=== PATIENT | female | born 1935 | race Caucasian/White ===

== ENCOUNTER → 2020-03-23 | Outpatient (CLI) | payer MEDICARE ==
--- NOTE | 2020-03-23 16:03 | XR ---
Left shoulder HISTORY: Left shoulder pain 4 views of left shoulder There are overlying artifacts. Generators present in the left pectoral region. Acromioclavicular join t shows arthropathy. There is some spurring at the glenohumeral joint. Bone mineralization and alignm ent are maintained. No fracture or dislocation. IMPRESSION: Osteoarthritis.
== END | disposition home or self-care (01) ==
LOC: RADXRMAIN 15:28
PROVIDERS: ATTEND Internal Medicine
DX: M19.012 Primary osteoarthritis, left shoulder (principal)

== ENCOUNTER 2020-04-11 08:14 | Day surgery (SDC) | payer MEDICARE ==
[2020-04-07 10:34] VITALS: BMI 37.2
[~2020-04-11 08:14] MED LIST: SODIUM CHLORIDE 0.9% 1,000 ML IV SCH; ceFAZolin 1,000 MG in SODIUM CHLORIDE 0.9% IRRIGATIO 250 ML IRRIGATION ONE
[2020-04-11] MEDS ORDERED: LIDOCAINE 1% INJ 10MG/ML (20 ML MDV) ONE ×2 (08:16→09:42)
[2020-04-11] MEDS ORDERED: SODIUM CHLORIDE 0.9% 1,000 ML IV ONE (08:19)
[2020-04-11 08:42] VITALS: RESP 16; TEMP 98
[2020-04-11] MEDS ORDERED: MIDAZOLAM 2 MG/2 ML VIAL IV ONE (09:27)
[2020-04-11] MEDS ORDERED: fentaNYL (PF) 50 MCG/ML 2 ML AMP IV ONE (09:31)
[2020-04-11] MEDS ORDERED: LIDOCAINE 1% INJ 10MG/ML (20 ML MDV) SQ ONE ×2 (09:32→09:44)
[2020-04-11] MEDS ORDERED: fentaNYL (PF) 50 MCG/ML 2 ML AMP ONE (09:33)
[2020-04-11] MEDS ORDERED: SODIUM CHLORIDE 0.9% 1,000 ML IV SCH (10:15)
--- NOTE | 2020-04-11 10:15 | P.PCN ---
Date of Procedure: 04/11/20 Preoperative Diagnosis: Battery depletion Postoperative Diagnosis: The same Procedure(s) Performed: Battery replacement Description of Procedure: HISTORY: It is a 84-year-old female with history of dual-chamber pacemaker implantation and also of paroxysmal atrial fibrillation who was noted to have reached JANE, on recent evaluation. Patient is advised to have battery replacement CONSENT: I have discussed the risks and benefits as related to the above mentioned procedure and both sedation/analgesia as well as necessary blood product administration. The patient has indicated understanding and acceptance of the risks of the procedure discussed. PROCEDURE: Patient was brought to the lab in a fasting state. Patient was given IV Versed and fentanyl for sedation. The skin over the existing pulse generator was infiltrated with lidocaine. An incision was made in the skin and was deepened until the pectoral fascia was exposed. Hemostasis was obtained. The existing pulse generator was pulled out of the pocket. The leads were disconnected and were checked for thresholds. Conscious Sedation: Versed 0.5 mg Fentanyl 12.5 g Duration 24minutes THRESHOLDS: ATRIAL: . Patient is in atrial fibrillation. The impedance is 475. The fibrillation waves were 1.1 VENTRICULAR: The minimum pacing threshold was 1.25 at pulse width of 0.4. The impedance is 532. R-wave: 8.2 THE LEADS: ATRIAL: This is manufactured by [employer]. Model number is 4135 and the serial number is [id number] VENTRICULAR:. This is manufactured by [employer]. The model number is 4136 and the serial number is [id number]. THE EXPLANTED DEVICE: This is manufactured by [employer]. The model number is S606 and the serial number is [id number]. Date of implant was 01/10/2010 THE NEW DEVICE: This is manufactured by [employer]. Model number is [id number] and the serial number is [id number]. The leads were then connected to a new pulse generator. Pacemaker seems to function normally. The pocket was irrigated with antibiotics. The pocket was closed in the usual fashion. Pectoral fascia was closed with 2-0 Prolene, the subcutaneous tissue was closed with 3-0 Prolene and the skin was closed with 4-0 Prolene. Patient tolerated the procedure well . Patient will be monitored on the telemetry unit for 2-3 hours. If stable patient be discharged home later today. PLAN: Patient will be monitored for 2 hours. If stable patient be discharged home. She will resume all the home medications except for Xarelto. She will resume Xarelto day after tomorrow. She is also being prescribed prophylactic antibiotics FALLOW UP: Follow-up in the office in one week. Patient will keep the dressing dry until seen in the office. She will report if she has any undue swelling, fever or chills
[2020-04-11 13:03] VITALS: BP 136/75; PULSE 88
[2020-04-11] MEDS ORDERED: CEPHALEXIN 500 MG CAP PO SCH (16:00)
== END 2020-04-11 13:54 | disposition home or self-care (01) ==
LOC: CATHEP 08:14
PROVIDERS: ATTEND Internal Medicine Cardiovascular Disease
DX: Z45.010 Encounter for checking and testing of cardiac pacemaker pulse generator [battery] (principal); I48.0 Paroxysmal atrial fibrillation; I11.0 Hypertensive heart disease with heart failure; I50.32 Chronic diastolic (congestive) heart failure; E78.5 Hyperlipidemia, unspecified; D64.9 Anemia, unspecified; E78.00 Pure hypercholesterolemia, unspecified; Z79.01 Long term (current) use of anticoagulants; Z79.899 Other long term (current) drug therapy; Z82.49 Family history of ischemic heart disease and other diseases of the circulatory system
CPT/HCPCS: 33228; C1785; J2250; J0690 ×2; J2001; J3010

== ENCOUNTER → 2020-07-21 | Outpatient (CLI) | payer MEDICARE, OTHER ==
[2020-07-21 20:14] LABS: HCT 32.6 % (37.2-46.3); HGB 9.4 g/dL (12.0-15.0); MCH 24.1 pg (27.0-32.0); MCHC 28.8 g/dL (32.0-37.0); MCV 83.6 fL (80.0-97.0); Mean Platelet Volume 10.4 fL (9.5-12.2); Platelet Count 412 X 10*3/uL (140-440); RDW 16.9 % (11.5-14.5); WBC 13.18 X 10*3/uL (4.50-10.00)
[2020-07-22 06:19] LABS: % Iron Saturation 4.86 (12.00-45.00); Ferritin 18.8 ng/mL (10.0-291.0)
== END | disposition home or self-care (01) ==
LOC: LABWHC1 13:42
PROVIDERS: ATTEND Physician Assistant
DX: D64.9 Anemia, unspecified (principal)
CPT/HCPCS: 36415; 82728; 83540; 83550; 85027

== ENCOUNTER → 2020-08-07 | Day surgery (SDC) | payer MEDICARE, OTHER ==
[2020-08-02 15:02] VITALS: BMI 33.5
[~2020-08-07] MED LIST changes: +PROPOFOL 10 MG/ML 20 ML VIAL IV ONE; -SODIUM CHLORIDE 0.9% 1,000 ML IV SCH; -ceFAZolin 1,000 MG in SODIUM CHLORIDE 0.9% IRRIGATIO 250 ML IRRIGATION ONE
[2020-08-07 08:25] VITALS: RESP 16; TEMP 96.4
[2020-08-07] MEDS: LACTATED RINGERS 1,000 ML IV SCH ×2 (08:39→08:45)
[2020-08-07 10:00] VITALS: BP 107/56; PULSE 101
[2020-08-07 11:09] LABS: Anisocytosis Slight; Basophils % (A) 0 %; Eosinophils # (A) 0.1 k/uL (0-0.7); Eosinophils % (A) 1 %; HCT 37.9 % (34.0-46.0); HGB 10.8 gm/dL (11.4-16.0); Hypochromasia Marked; Lymphocytes # (A) 1.1 k/uL (1.0-4.8); Lymphocytes % (A) 5 %; MCH 22.6 pg (25.0-35.0); MCHC 28.6 g/dL (31.0-37.0); MCV 79.1 fL (80.0-100.0); Mean Platelet Volume 7.2; Microcytosis Slight; Monocytes # (A) 0.9 k/uL (0-1.0); Monocytes % (A) 4 %; Neutrophils # (A) 19.9 k/uL (1.3-7.7); Neutrophils % (A) 90 %; Platelet Count 504 k/uL (150-450); RDW 16.4 % (11.5-15.5); WBC 22.1 k/uL (3.8-10.6)
[2020-08-07 11:15] LABS: Albumin 3.4 g/dL (3.5-5.0); Calcium 9.5 mg/dL (8.4-10.2); Potassium 4.4 mmol/L (3.5-5.1); Total Bilirubin 0.5 mg/dL (0.2-1.3); Total Protein 6.2 g/dL (6.3-8.2)
--- NOTE | 2020-08-07 11:37 | P.PCN ---
Date of Procedure: 08/07/20 Description of Procedure: Brief history: Patient is a pleasant 85-year-old female presenting for EGD and colonoscopy for evaluation of anemia and change in bowel habits. She was seen in the clinic with reports of 2 months of diarrhea. Patient also had reports of rectal fullness and incontinence of stool. Procedure performed: Esophagogastroduodenoscopy with biopsy Colonoscopy with polypectomy, biopsy and tattoo Estimated blood loss: Minimal. Preoperative diagnosis: Anemia, change in bowel habits, last colonoscopy over 10 years ago Anesthesia: MAC Procedure: After informed consent was obtained from the patient was brought into the endoscopy unit and IV sedation was administered by anesthesia under continuous monitoring. Initially upper endoscopy was done. The Olympus GF 190 video endoscope was inserted into the mouth and esophagus intubated without any difficulty and was gradually advanced into the stomach and duodenum and carefully examined. The bulb and second part of the duodenum appeared normal with biopsies taken to rule out celiac sprue. The scope was then withdrawn into the stomach adequately insufflated with air and upon careful examination the antrum and body, cardia and fundus appeared normal except for patchy erythema in the antrum and body suggestive of mild gastritis with biopsies taken. The scope was then withdrawn into the esophagus. The GE junction was located at 38 cm to the incisors and biopsied. It appeared regular with no erythema erosions or ulcerations. Rest of the esophagus appeared normal. Patient tolerated the procedure well. At this time the patient continued to remain sedation. Initial digital rectal examination was normal. Olympus CF 190 video colonoscope was then inserted into the rectum and gradually advanced to the cecum without any difficulty. Careful examination was performed as the scope was gradually being withdrawn. The prep was fair. The cecum, ascending colon, transverse colon, descending colon, sigmoid colon and rectum were examined carefully. In the ascending colon a partially obstructing mass measuring approximately 4 cm and encompassing 90% of the lumen was seen and biopsied. Tattoo was placed distal and proximal to the mass with a total of 4 mL of ink injected. In the descending colon a smooth appearing lipoma was biopsied. A diminutive 2 mm sigmoid: Polyp was removed with cold forcep polypectomy. Multiple diverticula were noted throughout the colon both large and small. Retroflexion was performed in the rectum and no lesions were noted. Patient tolerated the procedure well. Impression: 1. Mild gastritis. Biopsies of the duodenum, antrum body and GE junction. 2. Partially obstructing right colonic mass biopsied, with tattoos placed proximal and distal to the mass. Suspected descending colon lipoma, biopsied. Moderate pandiverticulosis. Recommendations: Findings of this examination were discussed with the patient as well as her daughter. Okay to resume diet recommended low fiber low residual. Case will be discussed with the primary team and Dr. Tracey of the surgical service. Plan is for computed tomography scan of the chest, abdomen and pelvis and follow up within the surgical office next week. Await pathology from biopsies and follow up as stated.
== END ==
LOC: ORWHC2ENDO 07:53
PROVIDERS: ATTEND Internal Medicine
DX: C18.9 Malignant neoplasm of colon, unspecified (principal); K63.89 Other specified diseases of intestine; K57.30 Diverticulosis of large intestine without perforation or abscess without bleeding; K29.50 Unspecified chronic gastritis without bleeding; K20.90 Esophagitis, unspecified without bleeding; D64.9 Anemia, unspecified; I11.0 Hypertensive heart disease with heart failure; I50.9 Heart failure, unspecified; E78.5 Hyperlipidemia, unspecified; I48.91 Unspecified atrial fibrillation; F79 Unspecified intellectual disabilities; Z98.890 Other specified postprocedural states; Z87.891 Personal history of nicotine dependence; Z79.899 Other long term (current) drug therapy; Z79.01 Long term (current) use of anticoagulants; Z90.49 Acquired absence of other specified parts of digestive tract; Z96.653 Presence of artificial knee joint, bilateral
CPT/HCPCS: 88305; 80053; 85025; 45380; 43239; 45381; J2704

== ENCOUNTER 2020-08-13 21:19 | Emergency (ER) | payer MEDICARE, OTHER ==
[2020-08-13 21:26] VITALS: RESP 18; TEMP 98.3
--- NOTE | 2020-08-13 21:52 | ED ---
General Adult HPI - General Chief complaint: Altered Mental Status Stated complaint: Altered Mental Status Time Seen by Provider: 08/13/20 21:22 Source: patient, EMS Mode of arrival: EMS Limitations: altered mental status - History of Present Illness Initial comments: Dictation was produced using [employer] dictation software. please excuse any grammatical, word or spelling errors. 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 She allegedly according to daughter who is at bedside has 90% blockage of the intestinal lumen. She had this discovery on a colonoscopy done recently. She went to see the surgeon on an outpatient basis. She was a reticulocyte spritzing symptoms. They did a urine test and she was found have a urinary tract infection. She is given prescription for Levaquin. Patient is a poor historian. She has history of altered mental status. Daughter provides the complete history of present illness. Or set she is increasingly weak and unable to perform her activities of daily living. She needs more assistance than usual. The ROS documented in this emergency department record has been reviewed and confirmed by me. Those systems with pertinent positive or negative responses have been documented in the HPI. All other systems are other negative and/or noncontributory. PHYSICAL EXAM: General Impression: Alert, not in acute distress HEENT: Normocephalic atraumatic, extra-ocular movements intact, pupils equal and reactive to light bilaterally, mucous membranes moist. Cardiovascular: Heart regular rate and rhythm Chest: Able to complete full sentences, no retractions, no tachypnea Abdomen: abdomen soft, diffuse palpatory tenderness, non-distended, no organomegaly Musculoskeletal: Pulses present and equal in all extremities, no peripheral edema Motor: no focal deficits noted Neurological: CN II-XII grossly intact, no focal motor or sensory deficits noted Skin: Intact with no visualized rashes Psych: Normal affect and mood ED course: 85-year-old female with recently diagnosed colon cancer, recent urinary tract infection presents with generalized malaise, UTI. Daughter reports patient just started her antibiotics 2 or 3 days ago and has not been improving. Vital signs upon arrival are within acceptable limits. Laboratory evaluation obtained. Mild leukocytosis 12.7. This appears to be improved. When compared to last white blood cell count from 6 days ago. She has completed 3 days of Levaquin. Metabolic panel is unremarkable. Urinalysis is negative. Computed tomography scan of the brain shows no acute processes. CT of the abdomen and pelvis shows colonic mass in the right hemiabdomen. Disposition options were discussed with patient and patient's daughter. Patient wants to go home. They're advised to follow-up with primary care doctor. EKG interpretation: Ventricular rate 107, A. fib with rapid ventricular response, QRS 86, QTC 392. No TX prolongation, no QTC prolongation, no ST or T- wave changes noted. No old EKG for comparison. Overall, this EKG is unremarkable - Related Data Home Medications Medication Instructions Recorded Confirmed Allopurinol [Zyloprim] 100 mg PO DAILY 04/07/20 08/13/20 Atorvastatin [Lipitor] 40 mg PO HS 04/07/20 08/13/20 Diltiazem Cd [Cardizem CD] 120 mg PO DAILY 04/07/20 08/13/20 Ferrous Sulfate [Iron] 325 mg PO DAILY 04/07/20 08/13/20 Magnesium Oxide [Mag-Ox] 400 mg PO BID 04/07/20 08/13/20 Metoprolol Succinate [Toprol XL] 50 mg PO DAILY 04/07/20 08/13/20 Mirtazapine [Remeron] 30 mg PO HS 04/07/20 08/13/20 Potassium Chloride [Klor-Con 20 20 meq PO BID 04/07/20 08/13/20 Packets] Sertraline [Zoloft] 100 mg PO HS 04/07/20 08/13/20 Spironolactone [Aldactone] 25 mg PO DAILY 04/07/20 08/13/20 Torsemide [Demadex] 20 mg PO DAILY 04/07/20 08/13/20 Rivaroxaban [Xarelto] 20 mg PO DAILY 08/02/20 08/13/20 Rivastigmine [Rivastigmine 1 patch TRANSDERM DAILY 08/02/20 08/13/20 4.6MG/24Hr] Cholecalciferol [Vitamin D3 (25 25 mcg PO DAILY 08/13/20 08/13/20 Mcg = 1000 Iu)] Levofloxacin [Levaquin] 500 mg PO DAILY 08/13/20 08/13/20 Allergies Allergy/AdvReac Type Severity Reaction Status Date / Time No Known Allergies Allergy Verified 08/07/20 08:20 Review of Systems ROS Statement: Those systems with pertinent positive or pertinent negative responses have been documented in the HPI. ROS Other: All systems not noted in ROS Statement are negative. Past Medical History Past Medical History: Atrial Fibrillation Additional Past Medical History / Comment(s): See Dr Neff's H&P,SOB with exertion,blood sugars slightly elevated History of Any Multi-Drug Resistant Organisms: None Reported Past Surgical History: Cholecystectomy, Joint Replacement, Orthopedic Surgery, Pacemaker Additional Past Surgical History / Comment(s): Lorne knees replaced,left shoulder repaired Past Anesthesia/Blood Transfusion Reactions: No Reported Reaction Additional Past Anesthesia/Blood Transfusion Reaction / Comment(s): unknown hx blood transfusion Type of Cardiac Device: Permanent Pacemaker Device Placement Date:: 2009 Past Psychological History: Depression Smoking Status: Former smoker - Past Family History Mother Family Medical History: No Reported History General Exam Limitations: altered mental status Course Vital Signs 08/13/20 21:21 Temperature 98.3 F Pulse Rate 100 Respiratory 18 Rate Blood Pressure 130/86 O2 Sat by Pulse 99 Oximetry Medical Decision Making - Lab Data Result diagrams: 08/13/20 22:11 08/13/20 22:11 Lab Results 08/13/20 08/13/20 08/13/20 Range/Units 22:11 22:11 22:11 WBC 12.7 H (3.8-10.6) k/uL RBC 4.30 (3.80-5.40) m/uL Hgb 10.2 L (11.4-16.0) gm/dL Hct 33.4 L (34.0-46.0) % MCV 77.7 L (80.0-100.0) fL MCH 23.7 L (25.0-35.0) pg MCHC 30.6 L (31.0-37.0) g/dL RDW 16.4 H (11.5-15.5) % Plt Count 380 (150-450) k/uL MPV 7.3 Neutrophils % 84 % Lymphocytes % 9 % Monocytes % 5 % Eosinophils % 1 % Basophils % 0 % Neutrophils # 10.6 H (1.3-7.7) k/uL Lymphocytes # 1.1 (1.0-4.8) k/uL Monocytes # 0.7 (0-1.0) k/uL Eosinophils # 0.1 (0-0.7) k/uL Basophils # 0.0 (0-0.2) k/uL Hypochromasia Marked Anisocytosis Slight Microcytosis Slight Sodium 135 L (137-145) mmol/L Potassium 4.2 (3.5-5.1) mmol/L Chloride 105 (98-107) mmol/L Carbon Dioxide 20 L (22-30) mmol/L Anion Gap 10 mmol/L BUN 19 H (7-17) mg/dL Creatinine 1.31 H (0.52-1.04) mg/dL Est GFR (CKD-EPI)AfAm 43 (>60 ml/min/1.73 sqM) Est GFR (CKD-EPI)NonAf 37 (>60 ml/min/1.73 sqM) Glucose 94 (74-99) mg/dL Calcium 8.7 (8.4-10.2) mg/dL Total Bilirubin 0.6 (0.2-1.3) mg/dL AST 26 (14-36) U/L ALT 10 (4-34) U/L Alkaline Phosphatase 130 H (38-126) U/L Ammonia (<30) umol/L Total Protein 5.5 L (6.3-8.2) g/dL Albumin 2.9 L (3.5-5.0) g/dL Urine Color Yellow Urine Appearance Clear (Clear) Urine pH 7.0 (5.0-8.0) Ur Specific Norris 1.017 (1.001-1.035) Urine Protein Trace H (Negative) Urine Glucose (UA) Negative (Negative) Urine Ketones Negative (Negative) Urine Blood Negative (Negative) Urine Nitrite Negative (Negative) Urine Bilirubin Negative (Negative) Urine Urobilinogen <2.0 (<2.0) mg/dL Ur Leukocyte Esterase Negative (Negative) 08/13/20 Range/Units 22:11 WBC (3.8-10.6) k/uL RBC (3.80-5.40) m/uL Hgb (11.4-16.0) gm/dL Hct (34.0-46.0) % MCV (80.0-100.0) fL MCH (25.0-35.0) pg MCHC (31.0-37.0) g/dL RDW (11.5-15.5) % Plt Count (150-450) k/uL MPV Neutrophils % % Lymphocytes % % Monocytes % % Eosinophils % % Basophils % % Neutrophils # (1.3-7.7) k/uL Lymphocytes # (1.0-4.8) k/uL Monocytes # (0-1.0) k/uL Eosinophils # (0-0.7) k/uL Basophils # (0-0.2) k/uL Hypochromasia Anisocytosis Microcytosis Sodium (137-145) mmol/L Potassium (3.5-5.1) mmol/L Chloride (98-107) mmol/L Carbon Dioxide (22-30) mmol/L Anion Gap mmol/L BUN (7-17) mg/dL Creatinine (0.52-1.04) mg/dL Est GFR (CKD-EPI)AfAm (>60 ml/min/1.73 sqM) Est GFR (CKD-EPI)NonAf (>60 ml/min/1.73 sqM) Glucose (74-99) mg/dL Calcium (8.4-10.2) mg/dL Total Bilirubin (0.2-1.3) mg/dL AST (14-36) U/L ALT (4-34) U/L Alkaline Phosphatase (38-126) U/L Ammonia <9 (<30) umol/L Total Protein (6.3-8.2) g/dL Albumin (3.5-5.0) g/dL Urine Color Urine Appearance (Clear) Urine pH (5.0-8.0) Ur Specific Norris (1.001-1.035) Urine Protein (Negative) Urine Glucose (UA) (Negative) Urine Ketones (Negative) Urine Blood (Negative) Urine Nitrite (Negative) Urine Bilirubin (Negative) Urine Urobilinogen (<2.0) mg/dL Ur Leukocyte Esterase (Negative) Disposition Clinical Impression: Generalized weakness [facility] Condition: Fair Instructions (If sedation given, give patient instructions): Altered Mental Sta tus (ED), Weakness (ED) Is patient prescribed a controlled substance at d/c from ED?: No Referrals: Lincoln Don MD [Primary Care Provider] - 1-2 days Time of Disposition: 23:16
[2020-08-13 22:22] LABS: Anisocytosis Slight; Basophils % (A) 0 %; Eosinophils # (A) 0.1 k/uL (0-0.7); Eosinophils % (A) 1 %; HCT 33.4 % (34.0-46.0); HGB 10.2 gm/dL (11.4-16.0); Hypochromasia Marked; Lymphocytes # (A) 1.1 k/uL (1.0-4.8); Lymphocytes % (A) 9 %; MCH 23.7 pg (25.0-35.0); MCHC 30.6 g/dL (31.0-37.0); MCV 77.7 fL (80.0-100.0); Mean Platelet Volume 7.3; Microcytosis Slight; Monocytes # (A) 0.7 k/uL (0-1.0); Monocytes % (A) 5 %; Neutrophils # (A) 10.6 k/uL (1.3-7.7); Neutrophils % (A) 84 %; Platelet Count 380 k/uL (150-450); RDW 16.4 % (11.5-15.5); WBC 12.7 k/uL (3.8-10.6)
[2020-08-13 22:29] LABS: Appearance,Urine Clear (Clear); Bilirubin,Urine Negative (Negative); Blood,Urine Negative (Negative); Color,Urine Yellow; Glucose,Urine (UA) Negative (Negative); Ketones,Urine Negative (Negative); Leukocyte Esterase,Urine Negative (Negative); Nitrite,Urine Negative (Negative); Protein,Urine Trace (Negative); Specific Gravity,Urine 1.017 (1.001-1.035); Urobilinogen,Urine <2.0 mg/dL (<2.0)
[2020-08-13 22:34] LABS: Albumin 2.9 g/dL (3.5-5.0); Calcium 8.7 mg/dL (8.4-10.2); Potassium 4.2 mmol/L (3.5-5.1); Total Bilirubin 0.6 mg/dL (0.2-1.3); Total Protein 5.5 g/dL (6.3-8.2)
--- NOTE | 2020-08-13 23:07 | CT ---
EXAMINATION TYPE: CT brain wo con DATE OF EXAM: 08/13/2020 COMPARISON: None HISTORY: AMS, UTI, recent diagnosis colon ca CT DLP: 1129.4 mGycm Automated exposure control for dose reduction was used. Multiple axial sections were obtained of the brain without contrast. There is cerebral cortical atrophy. There is no mass effect nor midline shift. There is no sign of in tracranial hemorrhage. There is patchy hypodensity in the periventricular white matter. The calvarium is intact. IMPRESSION: Cerebral atrophy and chronic small vessel ischemia. No acute intracranial abnormality.
--- NOTE | 2020-08-13 23:25 | CT ---
EXAMINATION TYPE: CT abdomen pelvis wo con DATE OF EXAM: 08/13/2020 COMPARISON: None HISTORY: Abdominal pain. Recently diagnosed colon ca CT DLP: 1021.4 mGycm Automated exposure control for dose reduction was used. Images were obtained from the diaphragm to the floor the pelvis without contrast. There is subsegmental atelectasis at the lung bases. Heart is enlarged. There is no pericardial effus ion. There is no pleural effusion. Liver and spleen are intact. The bile ducts are not dilated. There are clips from cholecystectomy. Th ere is no evidence of pancreatic mass. Stomach is intact. There is no adrenal mass. Kidneys show normal size and contour. There is no hydronephrosis. There is no retroperitoneal adenopathy. Ureters are not dilated. The bladder distends smoothly. There is no in guinal hernia. There are multiple sigmoid diverticula. There is no diverticulitis. There is increased soft tissue de nsity at the cecum and ascending colon consistent with tumor mass that is known according to the [facility]. This area measures approximate 8 x 5 cm. There is no evidence of a bowel obstruction. The terminal ileum is not dilated. Appendix not seen with certainty. No sign of thickened appendix. The lumbar vertebra have normal alignment. There is compression deformity of L3 and L4 vertebra consi stent with compression fractures that are probably old. There is vertebroplasty of L3. IMPRESSION: There is soft tissue increased density at the medial aspect of the ascending colon consistent with tu mor mass. No bowel obstruction. No free air. No ascites. Mild subsegmental atelectasis at the lung bases. Cardiomegaly. Sigmoid diverticulosis. L3 and L4 comp ression fractures appear old.
[2020-08-13 23:58] VITALS: BP 133/89; PULSE 95
== END 2020-08-14 00:49 ==
LOC: EC 21:19
DX: R53.1 Weakness (principal); I48.91 Unspecified atrial fibrillation; F32.9 Major depressive disorder, single episode, unspecified; D72.829 Elevated white blood cell count, unspecified; K63.89 Other specified diseases of intestine; Z79.899 Other long term (current) drug therapy; Z85.038 Personal history of other malignant neoplasm of large intestine; Z87.891 Personal history of nicotine dependence; Z96.653 Presence of artificial knee joint, bilateral
CPT/HCPCS: 36415; 70450; 74176; 80053; 81003; 82140; 85025; 93005; 99285

== ENCOUNTER → 2020-08-24 | Outpatient (CLI) | payer MEDICARE, OTHER ==
[2020-08-24 15:03] LABS: Anisocytosis Slight; HCT 33.3 % (34.0-46.0); HGB 9.7 gm/dL (11.4-16.0); Hypochromasia Marked; MCH 22.6 pg (25.0-35.0); MCHC 29.2 g/dL (31.0-37.0); MCV 77.4 fL (80.0-100.0); Mean Platelet Volume 7.3; Microcytosis Slight; Platelet Count 420 k/uL (150-450); RDW 16.2 % (11.5-15.5); WBC 15.6 k/uL (3.8-10.6)
[2020-08-24 15:07] LABS: Potassium 4.7 mmol/L (3.5-5.1)
== END | disposition home or self-care (01) ==
LOC: LABPAT 13:51
PROVIDERS: ATTEND Surgery
DX: Z01.818 Encounter for other preprocedural examination (principal); C18.9 Malignant neoplasm of colon, unspecified
CPT/HCPCS: 36415; 80051; 85027; 86850; 86900; 86901; 93005

== ENCOUNTER → 2020-08-24 | Outpatient (CLI) | payer MEDICARE, OTHER ==
--- NOTE | 2020-08-25 11:00 | ECHOF ---
Referral Reason:[id number] Pre op clearance MEASUREMENTS -------- HEIGHT: 162.6 cm WEIGHT: 86.2 kg BP: RVIDd: 3.0 cm (< 3.3) IVSd: 1.0 cm (0.6 - 1.1) LVIDd: 4.8 cm (3.9 - 5.3) LVPWd: 1.1 cm (0.6 - 1.1) IVSs: 1.3 cm LVIDs: 4.1 cm LVPWs: 1.6 cm LA Diam: 3.5 cm (2.7 - 3.8) Ao Diam: 3.5 cm (2.0 - 3.7) AV Cusp: 1.6 cm (1.5 - 2.6) MV EXCURSION: 14.230 mm (> 18.000) MV EF SLOPE: 38 mm/s (70 - 150) EPSS: 1.1 cm AV maxP.35 mmHg AV meanP.15 mmHg AR PHT: 536 ms RAP: 5.00 mmHg RVSP: 37.13 mmHg FINDINGS -------- Paced rhythm. This was a technically adequate study. The left ventricular size is normal. There is borderline concentric left ventricular hypertrophy. Overall left ventricular systolic function is low-normal with, an EF between 50 - 55 %. The right ventricle is normal in size. The left atrium is normal in size. The right atrium is normal in size. Interatrial and interventricular septum intact. There is mild aortic valve sclerosis. There is mild aortic regurgitation. There is mild aortic st enosis present. Peak/mean gradient across the Aortic Valve is 30.35mmHg / 19.15mmHg. Mild mitral annular calcification present. Mild mitral regurgitation is present. Mild tricuspid regurgitation present. There is mild pulmonary hypertension. The right ventricular systolic pressure, as measured by Doppler, is 37.13mmHg. The pulmonic valve was not well visualized. The aortic root size is normal. Normal inferior vena cava with normal inspiratory collapse consistent with estimated right atrial pre ssure of 5 mmHg. There is no pericardial effusion. CONCLUSIONS -------- 1. The left ventricular size is normal. 2. There is borderline concentric left ventricular hypertrophy. 3. Overall left ventricular systolic function is low-normal with, an EF between 50 - 55 %. 4. There is mild aortic valve sclerosis. 5. There is mild aortic regurgitation. 6. There is mild aortic stenosis present. 7. Peak/mean gradient across the Aortic Valve is 30.35mmHg / 19.15mmHg. 8. Mild mitral annular calcification present. 9. Mild mitral regurgitation is present. 10. Mild tricuspid regurgitation present. 11. There is mild pulmonary hypertension. 12. The right ventricular systolic pressure, as measured by Doppler, is 37.13mmHg. 13. There is no pericardial effusion. PIT FURNACE OPERATOR: Ragini Wan RDCS
== END | disposition home or self-care (01) ==
LOC: RADECHMAIN 14:45
PROVIDERS: ATTEND Internal Medicine
DX: Z01.810 Encounter for preprocedural cardiovascular examination (principal); I08.3 Combined rheumatic disorders of mitral, aortic and tricuspid valves; I27.20 Pulmonary hypertension, unspecified
CPT/HCPCS: 93306

== ENCOUNTER 2020-09-04 10:04 | Inpatient (IN) | payer MEDICARE, OTHER ==
[~2020-09-04 10:04] MED LIST changes: +ACETAMINOPHEN TAB 500 MG TAB PO PRN; +ALVIMOPAN 12 MG CAPSULE PO PRN; +HEPARIN SODIUM,PORCINE/PF 5,000 UNIT/0.5 ML SYRINGE SQ PRN; +LIDOCAINE 1% (10MG/ML) FOR IV START INTRADERMA PRN; -PROPOFOL 10 MG/ML 20 ML VIAL IV ONE; +fentaNYL (PF) 50 MCG/ML 2 ML AMP IV PRN; +metroNIDAZOLE-NS PMX 500 MG in SALINE 1 100ML.BAG IVPB PRN
[2020-09-04] MEDS ORDERED: ONDANSETRON 4 MG/2 ML VIAL ONE (13:09)
[2020-09-04] MEDS: LACTATED RINGERS 1,000 ML IV SCH (13:48)
[2020-09-04] MEDS ORDERED: ONDANSETRON 4 MG/2 ML VIAL IVP ONE (13:53)
[2020-09-04] MEDS ORDERED: ROCURONIUM 10 MG/ML (5 ML VIAL) IV ONE (14:51)
[2020-09-04] MEDS ORDERED: SUCCINYLCHOLINE CHLORIDE 100 MG/5 ML SYR IV ONE (14:51)
[2020-09-04] MEDS ORDERED: PROPOFOL 10 MG/ML 20 ML VIAL IV ONE (14:51)
[2020-09-04] MEDS ORDERED: ESMOLOL 100 MG/10 ML VIAL ONE (14:51)
[2020-09-04] MEDS ORDERED: NEOSTIGMINE 1 MG/ML 10 ML VIAL ONE (14:51)
[2020-09-04] MEDS ORDERED: PHENYLEPHRINE-0.9% NACL SYG 1,000 MCG/10 ML SYRINGE ONE (14:51)
[2020-09-04] MEDS ORDERED: LIDOCAINE 1% INJ 10MG/ML (20 ML MDV) ONE (14:51)
[2020-09-04] MEDS ORDERED: GLYCOPYRROLATE 0.2 MG/ML 2 ML VIAL ONE (14:51)
[2020-09-04] MEDS ORDERED: fentaNYL (PF) 50 MCG/ML 2 ML AMP ONE (14:51)
[2020-09-04] MEDS ORDERED: LABETALOL 5 MG/ML VIAL MDV ONE (14:51)
[2020-09-04] MEDS ORDERED: LACTATED RINGERS 1,000 ML IV ONE ×3 (15:46→18:04)
[2020-09-04] MEDS ORDERED: HYDROmorphone 0.5 MG/0.5 ML SYRINGE IVP ONE ×2 (16:52→17:33)
[2020-09-04] MEDS ORDERED: ONDANSETRON 4 MG/2 ML VIAL IVP PRN (16:56)
[2020-09-04] MEDS ORDERED: BENZOCAINE/MENTHOL LOZENG 1 EACH LOZENGE MUCOUS MEM PRN (16:56)
--- NOTE | 2020-09-04 17:02 | P.OP ---
Date of Procedure: 09/04/20 Procedure(s) Performed: PREOPERATIVE DIAGNOSIS: Right-sided colon cancer POSTOPERATIVE DIAGNOSIS: Same PROCEDURE: Exploratory laparotomy with right colectomy SURGEON: Kyung EBL: 50 ML ANESTHESIA: General COMPLICATIONS: None OPERATIVE PROCEDURE: Placement placed in the operating table in the supine position. The patient was placed under general anesthesia. Abdomen was then prepped and draped sterilely. Midline incision made using the scalpel. Dissection through the subcutaneous tissues and fascia took place using electrocautery. Entrance into the peritoneal cavity occurred. Bookwalter retractor was utilized. The patient had some adhesions in the right upper quadrant from the previous open cholecystectomy. There was evidence of a large mass involving the cecum/ascending colon that had tattooing evident. The bowel was not distended proximally. The liver was palpated and appeared normal. The cecum and terminal ileum were mobilized by incising the peritoneum. The white line of Toldt was incised as well. The mesentery of the cecum and ascending colon was brought medially. As we approached the area of the palpable mass there was some mild induration present. Careful dissection was able to mobilize this mass medially off of the duodenum. There did not appear to be any gross neoplastic extension into the surrounding tissues. The duodenum was carefully preserved and no cautery was used adjacent to the duodenum. The transverse colon was then divided using a linear 75 stapler. Mesentery of the transverse colon and ascending colon cecum and terminal ileum was then divided using a combination of 0 silk ties and the LigaSure device. Specimen was passed off at that point. The area was irrigated. No bleeding was seen. The antimesenteric portion of the staple line of both the ileum and transverse colon was excised using electrocautery. The linear 75 stapler was fired along the antimesenteric border creating a [id number] anastomosis antiperistaltic. The defect was then closed using a TX 60 device. The TX 60 stapler line was imbricated using interrupted 3-0 GI silk sutures. A 3-0 GI silk crotch stitch was also placed. The mesenteric defect was closed using a running 3-0 Vicryl suture. Again irrigation took place with no evidence of bleeding. No additional abnormalities in the bowel both small bowel and colon were identified. The midline fascia was then reapproximated using 2 separate double-stranded looped PDS sutures. The subcutaneous tissues were closed using 3-0 Vicryl sutures. The skin was closed using barbara. Sterile dressings were applied. At the end of this procedure the sponge needle and ensure counts were correct. DISPOSITION: Stable to recovery room
[2020-09-04] MEDS: D5-0.45% NACL WITH KCL 20MEQ/L 1,000 ML IV SCH (18:51)
[2020-09-04] MEDS: ACETAMINOPHEN IV (For NPO) 1,000 MG in EMPTY BAG 1 BAG IVPB SCH ×2 (18:51→23:29)
[2020-09-04] MEDS ORDERED: ACETAMINOPHEN TAB 500 MG TAB PO PRN (19:33)
[2020-09-04] MEDS ORDERED: FAMOTIDINE 20 MG/2 ML VIAL IV SCH (21:00)
[2020-09-04] MEDS: ALVIMOPAN 12 MG CAPSULE PO SCH (22:02)
[2020-09-04] MEDS: MIRTAZAPINE 15 MG TAB PO SCH (22:04)
[2020-09-04] MEDS: SERTRALINE 100 MG TAB PO SCH (22:06)
[2020-09-04] MEDS: MAGNESIUM OXIDE 400 MG TAB PO SCH (22:07)
[2020-09-04] MEDS: POTASSIUM CHLORIDE ER 20 MEQ TAB.ER PO SCH (22:12)
[2020-09-05] MEDS ORDERED: HEPARIN SODIUM,PORCINE/PF 5,000 UNIT/0.5 ML SYRINGE SQ SCH
[2020-09-05] MEDS: ACETAMINOPHEN IV (For NPO) 1,000 MG in EMPTY BAG 1 BAG IVPB SCH ×2 (05:49→12:40)
[2020-09-05] MEDS: D5-0.45% NACL WITH KCL 20MEQ/L 1,000 ML IV SCH ×3 (05:49→18:03)
[2020-09-05 07:23] LABS: Anisocytosis Slight; Basophils % (A) 0 %; Eosinophils % (A) 0 %; HCT 34.3 % (34.0-46.0); HGB 9.6 gm/dL (11.4-16.0); Hypochromasia Marked; Lymphocytes % (A) 6 %; MCH 21.5 pg (25.0-35.0); Mean Platelet Volume 8.5; Microcytosis Slight; Monocytes # (A) 0.7 k/uL (0-1.0); Monocytes % (A) 5 %; Neutrophils # (A) 14.3 k/uL (1.3-7.7); Neutrophils % (A) 89 %; Platelet Count 456 k/uL (150-450); RBC 4.45 m/uL (3.80-5.40); WBC 16.1 k/uL (3.8-10.6)
[2020-09-05] MEDS: HYDROmorphone 1 MG/ML 1 ML SYRINGE IVP PRN ×2 (08:21→17:19)
[2020-09-05] MEDS: FERROUS SULFATE 325 MG TAB PO SCH (08:24)
[2020-09-05] MEDS: MAGNESIUM OXIDE 400 MG TAB PO SCH ×2 (08:24→20:47)
[2020-09-05] MEDS: allopurinoL 100 MG TAB PO SCH (08:24)
[2020-09-05] MEDS: CHOLECALCIFEROL 25 MCG (1000 IU) TABLET PO SCH (08:24)
[2020-09-05] MEDS: PANTOPRAZOLE 40 MG TABLET PO SCH (08:25)
[2020-09-05] MEDS: SPIRONOLACTONE 25 MG TAB PO SCH (08:25)
[2020-09-05] MEDS: ALVIMOPAN 12 MG CAPSULE PO SCH ×2 (08:25→20:43)
[2020-09-05] MEDS: METOPROLOL SUCCINATE (ER) 50 MG TAB.ER.24H PO SCH (08:25)
[2020-09-05] MEDS: POTASSIUM CHLORIDE ER 20 MEQ TAB.ER PO SCH ×2 (08:25→20:48)
[2020-09-05] MEDS: DILTIAZEM CD 120 MG CAP.ER.24H PO SCH (08:26)
[2020-09-05] MEDS: RIVAROXABAN 20 MG TAB PO SCH (08:26)
[2020-09-05] MEDS: TORSEMIDE 20 MG TAB PO SCH (08:27)
[2020-09-05] MEDS: RIVASTIGMINE 4.6MG/24HR PATCH TRANSDERM SCH (08:27)
[2020-09-05] MEDS ORDERED: RIVAROXABAN 20 MG TAB PO SCH (09:00)
[2020-09-05 10:22] LABS: African American GFR (CKD) 36.4 (60.0-200.0); Anion Gap 15.5 mmol/L (4.00-12.00); Calcium 8.8 mg/dL (8.7-10.3); Carbon Dioxide 21.5 mmol/L (21.6-31.8); Non-African American GFR(CKD) 31.4 (60.0-200.0); Potassium 3.4 mmol/L (3.5-5.5)
[2020-09-05] MEDS ORDERED: POTASSIUM CHLORIDE ER 20 MEQ TAB.ER PO STA (11:04)
--- NOTE | 2020-09-05 11:11 | P.PN ---
<Ester Johnson - Last Filed: 09/05/20 11:00> Subjective Progress Note Date: 09/05/20 CHIEF COMPLAINT: Right-sided colon cancer HISTORY OF PRESENT ILLNESS: Patient is status post exploratory laparotomy with right colectomy. She is lying in bed comfortably. She has been having abdominal pain she is getting IV Dilaudid and IV Tylenol. The Dilaudid does make her sleepy. Patient currently on a clear liquid diet. Denies any nausea or vomiting. No flatus or BM. Afebrile. Patient did have tachycardia with a heart rate up to 120 during the night. Heart rate is now 96. BP stable at 125/77 WBC is 16.1 hemoglobin 9.6 potassium 3.4 creatinine 1.5 PHYSICAL EXAM: VITAL SIGNS: Reviewed. GENERAL: Well-developed in no acute distress. HEENT: No sclera icterus. Extraocular movements grossly intact. Moist buccal m ucosa. Head is atraumatic, normocephalic. ABDOMEN: Soft. Nondistended. Incisional dressing 2 small areas of blood saturation noted. One areas at the top of the dressing and the second is at the bottom of dressing NEUROLOGIC: Pleasantly confused ASSESSMENT: 1. Right-sided colon cancer status post exploratory laparotomy with right colectomy. Postop day #1 2. Hypokalemia 3. History of atrial fibrillation anticoagulated with Xarelto PLAN: -Potassium being replaced -Continue clear liquid diet -Continue pain medications -Continue IV fluids -Encourage incentive spirometer use -Continue PT OT -GI prophylaxis Protonix and DVT prophylaxis Xarelto Physician Nurse Administrator note has been reviewed by physician. Signing provider agrees with the documented findings, assessment, and plan of care. Objective - Vital Signs Vital signs: Vital Signs Temp 97.3 F L 09/05/20 08:12 Pulse 96 09/05/20 08:12 Resp 18 09/05/20 08:12 BP 125/77 09/05/20 08:12 Pulse Ox 95 09/05/20 07:29 Intake & Output 09/04/20 09/05/20 09/05/20 18:59 06:59 18:59 Intake Total 3150 100 Output Total 100 450 Balance 3050 -350 Weight 85.8 kg Intake: IV 3150 Oral 100 Output: Urine 50 450 Estimated Blood Loss 50 Other: Voiding Method Indwelling Catheter Indwelling Catheter - Labs CBC & Chem 7: 09/05/20 05:17 09/05/20 05:17 Labs: Abnormal Lab Results - Last 24 Hours (Table) 09/05/20 09/05/20 Range/Units 05:17 05:17 WBC 16.1 H (3.8-10.6) k/uL Hgb 9.6 L (11.4-16.0) gm/dL MCV 77.0 L (80.0-100.0) fL MCH 21.5 L (25.0-35.0) pg MCHC 28.0 L (31.0-37.0) g/dL RDW 16.0 H (11.5-15.5) % Plt Count 456 H (150-450) k/uL Neutrophils # 14.3 H (1.3-7.7) k/uL Potassium 3.4 L (3.5-5.5) mmol/L Carbon Dioxide 21.5 L (21.6-31.8) mmol/L Anion Gap 15.50 H (4.00-12.00) mmol/L Est GFR (CKD-EPI)AfAm 36.4 L (60.0-200.0) Est GFR (CKD-EPI)NonAf 31.4 L (60.0-200.0) Glucose 156 H (70-110) mg/dL <Raji Tracey - Last Filed: 09/05/20 16:59> Subjective As above. Patient more comfortable today. She is asking for more to eat. Tolerating clears. Labs noted. Will begin full liquids tomorrow. Increase activity. Objective - Vital Signs Vital signs: Vital Signs Temp 97.6 F 09/05/20 15:12 Pulse 86 09/05/20 15:12 Resp 16 09/05/20 15:12 BP 104/67 09/05/20 15:12 Pulse Ox 98 09/05/20 15:12 Intake & Output 09/04/20 09/05/20 09/05/20 18:59 06:59 18:59 Intake Total 3150 100 Output Total 100 450 Balance 3050 -350 Weight 85.8 kg Intake: IV 3150 Oral 100 Output: Urine 50 450 Estimated Blood Loss 50 Other: Voiding Method Indwelling Catheter Indwelling Catheter - Labs CBC & Chem 7: 09/05/20 05:17 09/05/20 05:17 Labs: Abnormal Lab Results - Last 24 Hours (Table) 09/05/20 09/05/20 Range/Units 05:17 05:17 WBC 16.1 H (3.8-10.6) k/uL Hgb 9.6 L (11.4-16.0) gm/dL MCV 77.0 L (80.0-100.0) fL MCH 21.5 L (25.0-35.0) pg MCHC 28.0 L (31.0-37.0) g/dL RDW 16.0 H (11.5-15.5) % Plt Count 456 H (150-450) k/uL Neutrophils # 14.3 H (1.3-7.7) k/uL Potassium 3.4 L (3.5-5.5) mmol/L Carbon Dioxide 21.5 L (21.6-31.8) mmol/L Anion Gap 15.50 H (4.00-12.00) mmol/L Est GFR (CKD-EPI)AfAm 36.4 L (60.0-200.0) Est GFR (CKD-EPI)NonAf 31.4 L (60.0-200.0) Glucose 156 H (70-110) mg/dL
[2020-09-05] MEDS: LACTATED RINGERS 1,000 ML IV SCH (11:31)
[2020-09-05] MEDS ORDERED: Potassium Replacement Protocol 1 EACH MISC MISCELLANE PRN (18:58)
--- NOTE | 2020-09-05 19:04 | P.CONS ---
History of Present Illness - Reason for Consult Consult date: 09/04/20 - History of Present Illness Sary Veronica, is an 85-year-old female who was admitted to [facility] by Dr. Tracey, and underwent Exploratory laparotomy with right colectomy on 09/04/2020, patient was subsequently admitted to medical floor, medical consultation was requested for management while hospitalized. Past medical history is significant for history of hypertension, history of hyperlipidemia, history of anemia, history of osteoarthritis, history of paroxysmal atrial fibrillation, history of diverticulosis, and history of major depression. On review of systems patient is alert and oriented 3 in no distress she was seen postoperatively on the medical floor she is complaining of mild pain in the abdomen otherwise she denies any complaints, there is no fever or chills no headache or dizziness no chest pain no shortness of breath no cough no nausea or vomiting no abdominal pain no diarrhea no blood in the stools no burning with urination no frequency or urgency and no hematuria Past Medical History Past Medical History: Atrial Fibrillation, Cancer, Heart Failure, Dementia, Hypertension, Osteoarthritis (OA), Pneumonia, Renal Disease Additional Past Medical History / Comment(s): SOB with exertion,gout, anemic, low magnesium,compression fx lumbar, colon cancer, chronic kidney disease, recent uti with tx of levaquin History of Any Multi-Drug Resistant Organisms: None Reported Past Surgical History: Cholecystectomy, Hernia Repair, Joint Replacement, Orthopedic Surgery, Pacemaker Additional Past Surgical History / Comment(s): Lorne knees replaced,left shoulder repaired, umbilical hernia repair Past Anesthesia/Blood Transfusion Reactions: No Reported Reaction Additional Past Anesthesia/Blood Transfusion Reaction / Comm: unknown hx blood transfusion Type of Cardiac Device: Permanent Pacemaker Device Placement Date:: 2009 Smoking Status: Former smoker - Past Family History Mother Family Medical History: No Reported History Medications and Allergies Home Medications Medication Instructions Recorded Confirmed Type Allopurinol [Zyloprim] 100 mg PO DAILY 04/07/20 09/04/20 History Diltiazem Cd [Cardizem CD] 120 mg PO DAILY 04/07/20 09/04/20 History Ferrous Sulfate [Iron] 325 mg PO DAILY 04/07/20 09/04/20 History Magnesium Oxide [Mag-Ox] 400 mg PO BID 04/07/20 09/04/20 History Metoprolol Succinate [Toprol XL] 50 mg PO DAILY 04/07/20 09/04/20 History Mirtazapine [Remeron] 30 mg PO HS 04/07/20 09/04/20 History Potassium Chloride [Klor-Con 20 20 meq PO BID 04/07/20 09/04/20 History Packets] Sertraline [Zoloft] 100 mg PO HS 04/07/20 09/04/20 History Spironolactone [Aldactone] 25 mg PO DAILY 04/07/20 09/04/20 History Torsemide [Demadex] 20 mg PO DAILY 04/07/20 09/04/20 History Rivaroxaban [Xarelto] 20 mg PO DAILY 08/02/20 09/04/20 History Rivastigmine [Rivastigmine 1 patch TRANSDERM DAILY 08/02/20 09/04/20 History 4.6MG/24Hr] Cholecalciferol [Vitamin D3 (25 25 mcg PO DAILY 08/13/20 09/04/20 History Mcg = 1000 Iu)] Acetaminophen [Tylenol] 500 mg PO DAILY PRN 08/22/20 09/04/20 History Pantoprazole Sodium [Protonix] 40 mg PO DAILY 08/22/20 09/04/20 History Allergies Allergy/AdvReac Type Severity Reaction Status Date / Time No Known Allergies Allergy Verified 09/04/20 13:10 Physical Exam Vitals: Vital Signs Temp Pulse Resp BP Pulse Ox 09/04/20 18:00 104 H 14 140/90 93 L 09/04/20 17:58 98 14 144/96 95 09/04/20 17:45 112 H 14 144/96 98 09/04/20 17:30 109 H 14 147/95 97 09/04/20 17:18 105 H 14 151/93 97 09/04/20 17:12 105 H 14 145/86 100 09/04/20 16:59 99 14 122/86 100 09/04/20 16:56 97.5 F L 113 H 15 120/81 99 09/04/20 16:45 98.3 F 125 H 20 109/86 100 09/04/20 13:12 97.3 F L 99 113/64 95 Intake and Output 09/04/20 09/04/20 09/04/20 06:59 14:59 22:59 Intake Total 1050 2100 Output Total 100 Balance 1050 2000 Intake: IV 1050 2100 Output: Urine 50 Estimated Blood Loss 50 Other: Weight 85.8 kg In general patient is alert and oriented 3 in no apparent distress HEENT head normocephalic and atraumatic, there is constant tremor of the lower mandible Neck is supple no JVD no goiter no lymphadenopathy Chest exam reveals a few scattered crackles no wheezing Cardiac exam reveals irregular heart sounds no gallops no murmurs Abdomen is soft with mild tenderness in the right lower quadrant no organomegaly no palpable masses Extremity exam reveals 2 edema no cyanosis or clubbing Neurological examination reveals no gross focal deficit Results CBC & Chem 7: 09/05/20 05:17 09/05/20 05:17 Assessment and Plan Plan: Right colon lesion status post right colectomy Underlying history of hypertension Underlying history of hyperlipidemia Underlying history of gout Underlying history of depression Home medications reviewed and reordered Recheck labs in a.m. Will follow closely during this admission
--- NOTE | 2020-09-05 19:22 | P.PN ---
Subjective Progress Note Date: 09/05/20 Sary Veronica, is an 85-year-old female who was admitted to [facility] by Dr. Tracey, and underwent Exploratory laparotomy with right colectomy on 09/04/2020, patient was subsequently admitted to medical floor, medical consultation was requested for management while hospitalized. Past medical history is significant for history of hypertension, history of hyperlipidemia, history of anemia, history of osteoarthritis, history of paroxysmal atrial fibrillation, history of diverticulosis, and history of major depression. On review of systems patient is alert and oriented 3 in no distress she was seen postoperatively on the medical floor she is complaining of mild pain in the abdomen otherwise she denies any complaints, there is no fever or chills no headache or dizziness no chest pain no shortness of breath no cough no nausea or vomiting no abdominal pain no diarrhea no blood in the stools no burning with urination no frequency or urgency and no hematuria On 09/05/2020 patient was seen and examined on the medical floor she is alert and oriented in no apparent distress she is complaining of some abdominal discomfort otherwise she denies any complaints throughout last night patient had some episodes of tachycardia , lab reviews is showing evidence of leukocytosis otherwise no abnormality at this time there is no fever or chills no headache or dizziness no chest pain no shortness of breath no cough no nausea or vomiting no abdominal pain no diarrhea no blood in the stools no burning with urination no frequency or urgency and no hematuria Objective - Vital Signs Vital signs: Vital Signs Temp 97.6 F 09/05/20 15:12 Pulse 86 09/05/20 18:46 Resp 16 09/05/20 18:46 BP 104/67 09/05/20 15:12 Pulse Ox 98 09/05/20 15:12 Intake & Output 09/05/20 09/05/20 09/06/20 06:59 18:59 06:59 Intake Total 100 1900 Output Total 450 Balance -350 1900 Intake: Intake, IV Titration 1500 Amount D5-0.45% NaCl with KCl 1500 20Meq/l 1,000 ml @ 125 mls/hr IV .Q8H [facility] Rx#: [id number] Oral 100 400 Output: Urine 450 Other: Voiding Method Indwelling Catheter Indwelling Catheter - Exam In general patient is alert and oriented 3 in no apparent distress HEENT head normocephalic and atraumatic, there is constant tremor of the lower mandible Neck is supple no JVD no goiter no lymphadenopathy Chest exam reveals a few scattered crackles no wheezing Cardiac exam reveals irregular heart sounds no gallops no murmurs Abdomen is soft with mild tenderness in the right lower quadrant no organomegaly no palpable masses Extremity exam reveals 2 edema no cyanosis or clubbing Neurological examination reveals no gross focal deficit - Labs CBC & Chem 7: 09/05/20 05:17 09/05/20 05:17 Labs: Abnormal Lab Results - Last 24 Hours (Table) 09/05/20 09/05/20 Range/Units 05:17 05:17 WBC 16.1 H (3.8-10.6) k/uL Hgb 9.6 L (11.4-16.0) gm/dL MCV 77.0 L (80.0-100.0) fL MCH 21.5 L (25.0-35.0) pg MCHC 28.0 L (31.0-37.0) g/dL RDW 16.0 H (11.5-15.5) % Plt Count 456 H (150-450) k/uL Neutrophils # 14.3 H (1.3-7.7) k/uL Potassium 3.4 L (3.5-5.5) mmol/L Carbon Dioxide 21.5 L (21.6-31.8) mmol/L Anion Gap 15.50 H (4.00-12.00) mmol/L Est GFR (CKD-EPI)AfAm 36.4 L (60.0-200.0) Est GFR (CKD-EPI)NonAf 31.4 L (60.0-200.0) Glucose 156 H (70-110) mg/dL Assessment and Plan Plan: Right colon lesion status post right colectomy Underlying history of hypertension Underlying history of hyperlipidemia Underlying history of gout Underlying history of depression Home medications reviewed and reordered Recheck labs in a.m. Will follow closely during this admission
[2020-09-05] MEDS: FAMOTIDINE 20 MG TAB PO SCH (20:44)
[2020-09-05] MEDS: MIRTAZAPINE 15 MG TAB PO SCH (20:46)
[2020-09-05] MEDS: SERTRALINE 100 MG TAB PO SCH (20:47)
[2020-09-06] MEDS: HYDROmorphone 1 MG/ML 1 ML SYRINGE IVP PRN ×2 (03:01→09:03)
[2020-09-06] MEDS: D5-0.45% NACL WITH KCL 20MEQ/L 1,000 ML IV SCH ×3 (03:09→17:19)
[2020-09-06] MEDS: LACTATED RINGERS 1,000 ML IV SCH (05:24)
[2020-09-06 06:58] LABS: Anisocytosis Slight; Basophils # (A) 0.1 k/uL (0-0.2); Basophils % (A) 0 %; Eosinophils # (A) 0.1 k/uL (0-0.7); Eosinophils % (A) 1 %; HCT 30.8 % (34.0-46.0); HGB 8.6 gm/dL (11.4-16.0); Hypochromasia Marked; Lymphocytes # (A) 0.8 k/uL (1.0-4.8); Lymphocytes % (A) 4 %; MCV 78.5 fL (80.0-100.0); Mean Platelet Volume 7.7; Microcytosis Slight; Monocytes # (A) 0.7 k/uL (0-1.0); Monocytes % (A) 4 %; Neutrophils # (A) 16.5 k/uL (1.3-7.7); Neutrophils % (A) 90 %; Platelet Count 339 k/uL (150-450); RBC 3.92 m/uL (3.80-5.40); WBC 18.3 k/uL (3.8-10.6)
[2020-09-06 10:13] LABS: African American GFR (CKD) 36.4 (60.0-200.0); Albumin 2.8 g/dL (3.80-4.90); Albumin/Globulin Ratio 1.87 (1.60-3.17); Anion Gap 11.3 mmol/L (4.00-12.00); BUN/Creat Ratio 13.33 Ratio (12.00-20.00); Calcium 8.6 mg/dL (8.7-10.3); Carbon Dioxide 18.7 mmol/L (21.6-31.8); Globulin 1.5 g/dL (1.6-3.3); Non-African American GFR(CKD) 31.4 (60.0-200.0); Potassium 4.1 mmol/L (3.5-5.5); Total Bilirubin 0.2 mg/dL (0.3-1.2); Total Protein 4.3 g/dL (6.2-8.2)
[2020-09-06] MEDS: TORSEMIDE 20 MG TAB PO SCH (10:43)
[2020-09-06] MEDS: RIVAROXABAN 20 MG TAB PO SCH (10:44)
[2020-09-06] MEDS: SPIRONOLACTONE 25 MG TAB PO SCH (10:44)
[2020-09-06] MEDS: ALVIMOPAN 12 MG CAPSULE PO SCH (10:44)
[2020-09-06] MEDS: PANTOPRAZOLE 40 MG TABLET PO SCH (10:44)
[2020-09-06] MEDS: FERROUS SULFATE 325 MG TAB PO SCH (10:44)
[2020-09-06] MEDS: DILTIAZEM CD 120 MG CAP.ER.24H PO SCH (10:44)
[2020-09-06] MEDS: METOPROLOL SUCCINATE (ER) 50 MG TAB.ER.24H PO SCH (10:44)
[2020-09-06] MEDS: allopurinoL 100 MG TAB PO SCH (10:45)
[2020-09-06] MEDS: POTASSIUM CHLORIDE ER 20 MEQ TAB.ER PO SCH ×2 (10:45→20:50)
[2020-09-06] MEDS: MAGNESIUM OXIDE 400 MG TAB PO SCH ×2 (10:45→20:50)
[2020-09-06] MEDS: CHOLECALCIFEROL 25 MCG (1000 IU) TABLET PO SCH (10:45)
--- NOTE | 2020-09-06 12:09 | P.PN ---
<Ester Johnson - Last Filed: 09/06/20 12:01> Subjective Progress Note Date: 09/06/20 CHIEF COMPLAINT: Right-sided colon cancer HISTORY OF PRESENT ILLNESS: Patient is status post exploratory laparotomy with right colectomy. Patient is sitting up at bedside chair. She has been reporting abdominal pain. She has been receiving Dilaudid and oral Tylenol. The 1mg IV Dilaudid does make her sleepy. Patient has been having episodes of paranoia and agitation. She pulled out her Andrade catheter last night. Denies any nausea or vomiting. She is currently a full liquid diet. Afebrile. Heart rate 125. Patient has had episodes of tachycardia WBC has increased from 16.1 and 18.3 hemoglobin down from 9.6 to 8.6 sodium 134 potassium 4.1 creatinine 1.5 PHYSICAL EXAM: VITAL SIGNS: Reviewed. GENERAL: Well-developed in no acute distress. HEENT: No sclera icterus. Extraocular movements grossly intact. Moist buccal mucosa. Head is atraumatic, normocephalic. ABDOMEN: Soft. Nondistended. Incisional dressing 2 small areas of blood saturation noted. One areas at the top of the dressing and the second is at the bottom of dressing NEUROLOGIC: confused ASSESSMENT: 1. Right-sided colon cancer status post exploratory laparotomy with right colectomy. Postop day #2 2. Hypokalemia improved 3. History of atrial fibrillation anticoagulated with Xarelto PLAN: -Consult psychiatry regarding patient's paranoia -Continue clear liquid diet -Continue pain medications -Continue IV fluids -Encourage incentive spirometer use -Continue PT OT -GI prophylaxis Protonix and DVT prophylaxis Xarelto Physician Corporate Aircraft Mechanic note has been reviewed by physician. Signing provider agrees with the documented findings, assessment, and plan of care. Objective - Vital Signs Vital signs: Vital Signs Temp 97.3 F L 09/05/20 19:48 Pulse 125 H 09/06/20 09:02 Resp 18 09/05/20 19:48 BP 128/83 09/06/20 09:02 Pulse Ox 98 09/06/20 04:54 Intake & Output 09/05/20 09/06/20 09/06/20 18:59 06:59 18:59 Intake Total 1900 Balance 1900 Intake: Intake, IV Titration 1500 Amount D5-0.45% NaCl with KCl 1500 20Meq/l 1,000 ml @ 125 mls/hr IV .Q8H [facility] Rx#: [id number] Oral 400 Other: Voiding Method Indwelling Catheter Indwelling Catheter # Bowel Movements 0 - Labs CBC & Chem 7: 09/06/20 05:31 09/06/20 05:31 Labs: Abnormal Lab Results - Last 24 Hours (Table) 09/06/20 09/06/20 Range/Units 05:31 05:31 WBC 18.3 H (3.8-10.6) k/uL Hgb 8.6 L (11.4-16.0) gm/dL Hct 30.8 L (34.0-46.0) % MCV 78.5 L (80.0-100.0) fL MCH 22.0 L (25.0-35.0) pg MCHC 28.0 L (31.0-37.0) g/dL RDW 16.0 H (11.5-15.5) % Neutrophils # 16.5 H (1.3-7.7) k/uL Lymphocytes # 0.8 L (1.0-4.8) k/uL Sodium 134 L (135-145) mmol/L Carbon Dioxide 18.7 L (21.6-31.8) mmol/L Est GFR (CKD-EPI)AfAm 36.4 L (60.0-200.0) Est GFR (CKD-EPI)NonAf 31.4 L (60.0-200.0) Glucose 128 H (70-110) mg/dL Calcium 8.6 L (8.7-10.3) mg/dL Total Bilirubin 0.2 L (0.3-1.2) mg/dL Total Protein 4.3 L (6.2-8.2) g/dL Albumin 2.80 L (3.80-4.90) g/dL Globulin 1.5 L (1.6-3.3) g/dL <Raji Tracey - Last Filed: 09/06/20 16:56> Subjective As above. Patient with increased confusion and paranoia today. Denies pain. Not eating much but tolerating what she has been eating. No bowel function. Continue full liquids. Monitor labs. Psychiatry consult has been placed. Objective - Vital Signs Vital signs: Vital Signs Temp 97.6 F 09/06/20 12:53 Pulse 99 09/06/20 12:53 Resp 16 09/06/20 12:53 BP 108/73 09/06/20 12:53 Pulse Ox 100 09/06/20 12:53 Intake & Output 09/05/20 09/06/20 09/06/20 18:59 06:59 18:59 Intake Total 1900 Balance 1900 Intake: Intake, IV Titration 1500 Amount D5-0.45% NaCl with KCl 1500 20Meq/l 1,000 ml @ 125 mls/hr IV .Q8H [facility] Rx#: [id number] Oral 400 Other: Voiding Method Indwelling Catheter Indwelling Catheter Toilet # Bowel Movements 0 - Labs CBC & Chem 7: 09/06/20 05:31 09/06/20 05:31 Labs: Abnormal Lab Results - Last 24 Hours (Table) 09/06/20 09/06/20 Range/Units 05:31 05:31 WBC 18.3 H (3.8-10.6) k/uL Hgb 8.6 L (11.4-16.0) gm/dL Hct 30.8 L (34.0-46.0) % MCV 78.5 L (80.0-100.0) fL MCH 22.0 L (25.0-35.0) pg MCHC 28.0 L (31.0-37.0) g/dL RDW 16.0 H (11.5-15.5) % Neutrophils # 16.5 H (1.3-7.7) k/uL Lymphocytes # 0.8 L (1.0-4.8) k/uL Sodium 134 L (135-145) mmol/L Carbon Dioxide 18.7 L (21.6-31.8) mmol/L Est GFR (CKD-EPI)AfAm 36.4 L (60.0-200.0) Est GFR (CKD-EPI)NonAf 31.4 L (60.0-200.0) Glucose 128 H (70-110) mg/dL Calcium 8.6 L (8.7-10.3) mg/dL Total Bilirubin 0.2 L (0.3-1.2) mg/dL Total Protein 4.3 L (6.2-8.2) g/dL Albumin 2.80 L (3.80-4.90) g/dL Globulin 1.5 L (1.6-3.3) g/dL
[2020-09-06] MEDS: RIVASTIGMINE 4.6MG/24HR PATCH TRANSDERM SCH (12:38)
--- NOTE | 2020-09-06 13:55 | P.PN ---
Subjective Progress Note Date: 09/06/20 Sary Veronica, is an 85-year-old female who was admitted to [facility] by Dr. Tracey, and underwent Exploratory laparotomy with right colectomy on 09/04/2020, patient was subsequently admitted to medical floor, medical consultation was requested for management while hospitalized. Past medical history is significant for history of hypertension, history of hyperlipidemia, history of anemia, history of osteoarthritis, history of paroxysmal atrial fibrillation, history of diverticulosis, and history of major depression. On review of systems patient is alert and oriented 3 in no distress she was seen postoperatively on the medical floor she is complaining of mild pain in the abdomen otherwise she denies any complaints, there is no fever or chills no headache or dizziness no chest pain no shortness of breath no cough no nausea or vomiting no abdominal pain no diarrhea no blood in the stools no burning with urination no frequency or urgency and no hematuria On 09/05/2020 patient was seen and examined on the medical floor she is alert and oriented in no apparent distress she is complaining of some abdominal discomfort otherwise she denies any complaints throughout last night patient had some episodes of tachycardia , lab reviews is showing evidence of leukocytosis otherwise no abnormality at this time there is no fever or chills no headache or dizziness no chest pain no shortness of breath no cough no nausea or vomiting no abdominal pain no diarrhea no blood in the stools no burning with urination no frequency or urgency and no hematuria On 09/06/2020 patient is more alert and oriented today. Had bouts of confusion and paranoia throughout night. Patient does have known past medical history of dementia. Patient's daughter is at bedside. Patient has improved in mentation. White blood cell is elevated 18.3 and heart rate remains tachycardia with known atrial fibrillation. At this time will order urinary analysis, urine culture, blood culture and chest x-ray to rule out any signs of infection. Patient is extremely hard of hearing but denies any chest pain or shortness breath. Patient denies nausea vomiting or diarrhea. Patient denies any urinary burning or frequency Objective - Vital Signs Vital signs: Vital Signs Temp 97.6 F 09/06/20 12:53 Pulse 99 09/06/20 12:53 Resp 16 09/06/20 12:53 BP 108/73 09/06/20 12:53 Pulse Ox 100 09/06/20 12:53 Intake & Output 09/05/20 09/06/20 09/06/20 18:59 06:59 18:59 Intake Total 1900 Balance 1900 Intake: Intake, IV Titration 1500 Amount D5-0.45% NaCl with KCl 1500 20Meq/l 1,000 ml @ 125 mls/hr IV .Q8H [facility] Rx#: [id number] Oral 400 Other: Voiding Method Indwelling Catheter Indwelling Catheter Toilet # Bowel Movements 0 - Exam In general patient is alert and oriented 3 in no apparent distress HEENT head normocephalic and atraumatic, there is constant tremor of the lower mandible Neck is supple no JVD no goiter no lymphadenopathy Chest exam reveals a few scattered crackles no wheezing Cardiac exam reveals irregular heart sounds no gallops no murmurs Abdomen is soft with mild tenderness in the right lower quadrant no organomegaly no palpable masses Extremity exam reveals 2 edema no cyanosis or clubbing Neurological examination reveals no gross focal deficit - Labs CBC & Chem 7: 09/06/20 05:31 09/06/20 05:31 Labs: Abnormal Lab Results - Last 24 Hours (Table) 09/06/20 09/06/20 Range/Units 05:31 05:31 WBC 18.3 H (3.8-10.6) k/uL Hgb 8.6 L (11.4-16.0) gm/dL Hct 30.8 L (34.0-46.0) % MCV 78.5 L (80.0-100.0) fL MCH 22.0 L (25.0-35.0) pg MCHC 28.0 L (31.0-37.0) g/dL RDW 16.0 H (11.5-15.5) % Neutrophils # 16.5 H (1.3-7.7) k/uL Lymphocytes # 0.8 L (1.0-4.8) k/uL Sodium 134 L (135-145) mmol/L Carbon Dioxide 18.7 L (21.6-31.8) mmol/L Est GFR (CKD-EPI)AfAm 36.4 L (60.0-200.0) Est GFR (CKD-EPI)NonAf 31.4 L (60.0-200.0) Glucose 128 H (70-110) mg/dL Calcium 8.6 L (8.7-10.3) mg/dL Total Bilirubin 0.2 L (0.3-1.2) mg/dL Total Protein 4.3 L (6.2-8.2) g/dL Albumin 2.80 L (3.80-4.90) g/dL Globulin 1.5 L (1.6-3.3) g/dL Assessment and Plan Plan: Right colon lesion status post right colectomy Underlying history of hypertension Underlying history of hyperlipidemia Underlying history of gout Underlying history of depression Known atrial fibrillation with elevated heart rate. Continue fluids at 100. Patient is on Xarelto for anticoagulation. Leukocytosis. Will order UA, UC, blood culture and chest x-ray Increased confusion. Patient has known dementia. Rule rule out infection. Mentation is improved
[2020-09-06] MEDS ORDERED: HALOPERIDOL LACTATE 5 MG/ML 1 ML VIAL IM PRN (14:16)
--- NOTE | 2020-09-06 14:18 | XR ---
EXAMINATION TYPE: XR chest 1V portable DATE OF EXAM: 09/06/2020 HISTORY: Shortness of breath. COMPARISON: None. TECHNIQUE: Single view of the chest is submitted. FINDINGS: Demonstrated are scattered senescent parenchymal change. There is no evidence for focal infiltrate. The heart is stable. Hilar and mediastinal structures are within normal limits. Degenerative changes are seen of the dorsal spine. IMPRESSION: 1. Chronic changes without evidence for acute pulmonary disease.
--- NOTE | 2020-09-06 14:26 | P.CN ---
Psychiatric Consult - . Consult date: 09/06/20 Consult:: 09/06/20 14:18 IDENTIFYING DATA: This patient is a 85-year-old female who currently lives with her 's sister in a house and has a caregiver, has 4 kids. REASON FOR REFERRAL: Psychiatry was consulted for "paranoia, agitation " HISTORY OF PRESENT ILLNESS: The patient has a history of dementia and depression. Patient is status post exploratory laparotomy with right sided colectomy and is postop day 2. Patient has been receiving Dilor added and Tylenol for pain control. She apparently had episodes of paranoia and agitation and had been noted to pull at her Andrade catheter and had it removed overnight. Patient's WBCs and ANC were elevated. Patient nurse claims that patient is doing better today and has been not aggressive. Patient was seen today at the bedside and appeared to be eating her lunch. She was with her at the bedside. Patient was a poor historian however was attempting to cooperate and appeared to have good impulse control and was following commands. She was hard of hearing. She states that she is doing "good". She denied any complaints and she was not agitated today. She believes that she is in [facility] and knew her correct name. She does not know today's date. She denied any changes in her mood or anxiety. Patient's gave further history and states that patient appears to be at her baseline and does not know why psychiatry was consulted . At this time patient denies any suicidal or homical ideations, intent or plan. Patient denies any auditory, visual hallucinations and denies any paranoia or delusions. Patients admits to using no recreational drugs or cigarettes. PAST PSYCHIATRIC HISTORY: Patient has a a history of depression dementia. Patient is on Zoloft and Remeron. Patient denies any previous psychiatric hospitalizations. Patient denies any psychiatric outpatient follow-up. Patient denies any history of suicide attempts in the past. PAST MEDICAL HISTORY: Dementia, colon cancer, hypertension, hyperlipidemia, gout. ALLERGIES: as per EMR. CHEMICAL DEPENDENCY HISTORY: as per HPI. FAMILY PSYCHIATRIC/SUBSTANCE USE HISTORY: states that patient's cousin had some form of mental illness. SOCIAL HISTORY: Patient was born and raised in [facility]. Patient did attend 2 years in college. 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 She currently has a caregiver and lives with her 's sister and has 4 kids MENTAL STATUS EXAM: General Appearance: Patient appears to be overweight, elderly, stated age is alert, pleasant, and attempts to cooperate. Patient appears to have fair hygiene and grooming wearing hospital gown with fair eye contact. Behavior: Patient is calmly lying in bed without any agitated behavior. Speech: Patient's speech is nonpressured. Mood/Affect: Patient reports their mood is "ok", affect is congruent Suicidality/Homicidality: Patient denies having any suicidal or homicidal ideation intent or plan. Perceptions: Patient denies any visual hallucinations and denies any auditory hallucinations Though content/process: Rambles, illogical at times. Poor historian. Memory and concentration: AOX1-2, she does not know what today's date is in believes that she is at [facility]. Fair attention span. Cannot spell "WORLD" backwards Judgment and insight: Chronically poor IMPRESSIONS: Delirium, likely due to medications (opioids and anesthesia) History of depression PLAN: -At this time patient DOES NOT meet criteria for inpatient psychiatric admission. -Delirium precautions recommended with patient including - avoiding use of narcotics and SOFTWARE ADMINISTRATOR sedatives, limit anticholinergic medications when possible, frequent re-orientation, minimize use of restraints, open window shades during the day and close them at night -Would recommend the following medication changes/additions: Can continue with Zoloft 100 mg daily at bedtime and Remeron 30 mg daily at bedtime as her home medications. Started melatonin 2 mg daily at bedtime for insomnia. Added Haldol PO and IM prns available for any agitation or aggression. Please attempt to cut back on opiates as much as possble as this is most likely exacerbating delirium. -Communicated plan to patient's nurse -Psychiatry will sign off at this time -Please contact with any questions.
[2020-09-06 17:55] LABS: Appearance,Urine Cloudy (Clear); Bacteria,Urine Rare /hpf; Bilirubin,Urine Negative (Negative); Blood,Urine Small (Negative); Color,Urine Yellow; Glucose,Urine (UA) Negative (Negative); Hyaline Casts,Urine 26 /lpf (0-2); Ketones,Urine Negative (Negative); Leukocyte Esterase,Urine Small (Negative); Mucus,Urine Occasional /hpf; Nitrite,Urine Negative (Negative); PH, Urine 5.5 (5.0-8.0); Protein,Urine Trace (Negative); RBC,Urine 7 /hpf (0-5); Specific Gravity,Urine 1.022 (1.001-1.035); Squamous Epithelial Cell,Urine 6 /hpf (0-4); Urobilinogen,Urine <2.0 mg/dL (<2.0); WBC,Urine 14 /hpf (0-5)
[2020-09-06] MEDS: SERTRALINE 100 MG TAB PO SCH (20:44)
[2020-09-06] MEDS: MIRTAZAPINE 15 MG TAB PO SCH (20:49)
[2020-09-07] MEDS: MELATONIN 1 MG TAB PO SCH ×2 (00:32→20:07)
[2020-09-07] MEDS: FAMOTIDINE 20 MG TAB PO SCH ×2 (00:32→20:07)
[2020-09-07] MEDS: D5-0.45% NACL WITH KCL 20MEQ/L 1,000 ML IV SCH ×2 (04:41→15:57)
[2020-09-07] MEDS: LACTATED RINGERS 1,000 ML IV SCH (05:57)
[2020-09-07 06:20] LABS: Anisocytosis Slight; Basophils % (A) 0 %; Eosinophils # (A) 0.2 k/uL (0-0.7); Eosinophils % (A) 1 %; HCT 31.6 % (34.0-46.0); HGB 8.9 gm/dL (11.4-16.0); Hypochromasia Marked; Lymphocytes # (A) 0.9 k/uL (1.0-4.8); Lymphocytes % (A) 5 %; MCH 21.3 pg (25.0-35.0); MCHC 28.1 g/dL (31.0-37.0); Mean Platelet Volume 7.6; Microcytosis Slight; Monocytes # (A) 0.7 k/uL (0-1.0); Monocytes % (A) 4 %; Neutrophils # (A) 16.3 k/uL (1.3-7.7); Neutrophils % (A) 90 %; Platelet Count 416 k/uL (150-450); Poikilocytosis Slight; RBC 4.15 m/uL (3.80-5.40); WBC 18.2 k/uL (3.8-10.6)
[2020-09-07] MEDS: allopurinoL 100 MG TAB PO SCH (07:29)
[2020-09-07] MEDS: PANTOPRAZOLE 40 MG TABLET PO SCH (07:29)
[2020-09-07] MEDS: DILTIAZEM CD 120 MG CAP.ER.24H PO SCH (07:29)
[2020-09-07] MEDS: CHOLECALCIFEROL 25 MCG (1000 IU) TABLET PO SCH (07:29)
[2020-09-07] MEDS: FERROUS SULFATE 325 MG TAB PO SCH (07:30)
[2020-09-07] MEDS: POTASSIUM CHLORIDE ER 20 MEQ TAB.ER PO SCH ×2 (07:31→20:07)
[2020-09-07] MEDS: MAGNESIUM OXIDE 400 MG TAB PO SCH ×2 (07:31→20:07)
[2020-09-07] MEDS: RIVAROXABAN 20 MG TAB PO SCH (07:31)
[2020-09-07] MEDS: METOPROLOL SUCCINATE (ER) 50 MG TAB.ER.24H PO SCH (07:31)
[2020-09-07] MEDS: SPIRONOLACTONE 25 MG TAB PO SCH (07:32)
[2020-09-07] MEDS: TORSEMIDE 20 MG TAB PO SCH (07:32)
[2020-09-07] MEDS: RIVASTIGMINE 4.6MG/24HR PATCH TRANSDERM SCH (07:32)
[2020-09-07 10:44] LABS: African American GFR (CKD) 47.7 (60.0-200.0); Albumin 2.8 g/dL (3.80-4.90); Albumin/Globulin Ratio 1.56 (1.60-3.17); Anion Gap 11.2 mmol/L (4.00-12.00); BUN/Creat Ratio 15.83 Ratio (12.00-20.00); Calcium 8.8 mg/dL (8.7-10.3); Carbon Dioxide 20.8 mmol/L (21.6-31.8); Globulin 1.8 g/dL (1.6-3.3); Non-African American GFR(CKD) 41.2 (60.0-200.0); Potassium 4.5 mmol/L (3.5-5.5); Total Bilirubin 0.3 mg/dL (0.2-1.2); Total Protein 4.6 g/dL (6.2-8.2)
--- NOTE | 2020-09-07 11:56 | P.PN ---
<Ester Johnson - Last Filed: 09/07/20 11:50> Subjective Progress Note Date: 09/07/20 CHIEF COMPLAINT: Right-sided colon cancer HISTORY OF PRESENT ILLNESS: Patient is status post exploratory laparotomy with right colectomy. Patient is lying in bed comfortably. Nursing staff is working on getting her up to the bathroom to urinate. She is confused. But able to follow commands. She is left paranoid. She was evaluated by psychiatry in they felt that her delirium was likely due to pain medications and anesthesia. They have added melatonin for sleep and Haldol as needed. The IV Dilaudid was discontinued. Patient is using Tylenol as needed for pain. Patient denies any nausea or vomiting. No bowel activity She's on a full liquid diet. Afebrile. Mildly tachycardic but better than yesterday. Heart rate 102. WBC 18.2 hemoglobin 8.9 urine culture pending chest x-ray negative for any acute pulmonary disease PHYSICAL EXAM: VITAL SIGNS: Reviewed. GENERAL: Well-developed in no acute distress. HEENT: No sclera icterus. Extraocular movements grossly intact. Moist buccal mucosa. Head is atraumatic, normocephalic. ABDOMEN: Soft. Nondistended. Incision site clean dry and intact NEUROLOGIC: confused ASSESSMENT: 1. Right-sided colon cancer status post exploratory laparotomy with right colectomy. Postop day #3 2. Hypokalemia improved 3. History of atrial fibrillation anticoagulated with Xarelto 4. Leukocytosis PLAN: -Continue full liquid diet -Continue Tylenol as needed for pain -Continue IV fluids -Encourage incentive spirometer use -Continue PT OT -GI prophylaxis Protonix and DVT prophylaxis Xarelto Physician Photographs Curator note has been reviewed by physician. Signing provider agrees with the documented findings, assessment, and plan of care. Objective - Vital Signs Vital signs: Vital Signs Temp 97.4 F L 09/07/20 07:48 Pulse 102 H 09/07/20 11:04 Resp 16 09/07/20 11:04 BP 100/64 09/07/20 07:48 Pulse Ox 99 09/07/20 07:48 Intake & Output 09/06/20 09/07/20 09/07/20 18:59 06:59 18:59 Intake Total 436 300 Output Total 151 Balance 436 149 Intake: Intake, IV Titration 200 Amount D5-0.45% NaCl with KCl 200 20Meq/l 1,000 ml @ 125 mls/hr IV .Q8H [facility] Rx#: [id number] Oral 236 300 Output: Urine 150 Urine/Stool Mix 1 Other: Voiding Method Toilet Toilet Toilet # Voids 2 # Bowel Movements 0 - Labs CBC & Chem 7: 09/07/20 05:26 09/07/20 05:26 Labs: Abnormal Lab Results - Last 24 Hours (Table) 09/06/20 09/07/20 09/07/20 Range/Units 17:00 05:26 05:26 WBC 18.2 H (3.8-10.6) k/uL Hgb 8.9 L (11.4-16.0) gm/dL Hct 31.6 L (34.0-46.0) % MCV 76.0 L (80.0-100.0) fL MCH 21.3 L (25.0-35.0) pg MCHC 28.1 L (31.0-37.0) g/dL RDW 16.0 H (11.5-15.5) % Neutrophils # 16.3 H (1.3-7.7) k/uL Lymphocytes # 0.9 L (1.0-4.8) k/uL Sodium 133 L (135-145) mmol/L Carbon Dioxide 20.8 L (21.6-31.8) mmol/L Est GFR (CKD-EPI)AfAm 47.7 L (60.0-200.0) Est GFR (CKD-EPI)NonAf 41.2 L (60.0-200.0) AST 11 L (13-35) U/L Alkaline Phosphatase 128 H (41-126) U/L Total Protein 4.6 L (6.2-8.2) g/dL Albumin 2.80 L (3.80-4.90) g/dL Albumin/Globulin Ratio 1.56 L (1.60-3.17) g/dL Urine Appearance Cloudy H (Clear) Urine Protein Trace H (Negative) Urine Blood Small H (Negative) Ur Leukocyte Esterase Small H (Negative) Urine RBC 7 H (0-5) /hpf Urine WBC 14 H (0-5) /hpf Ur Squamous Epith Cells 6 H (0-4) /hpf Urine Bacteria Rare H (None) /hpf Hyaline Casts 26 H (0-2) /lpf Urine Mucus Occasional H (None) /hpf Microbiology - Last 24 Hours (Table) 09/06/20 17:00 Urine Culture - Preliminary Urine,Voided <Raji Trcaey - Last Filed: 09/07/20 16:20> Subjective As above. Patient's confusion seems to be improved. Denies pain. She has had a bowel movement. Tolerating full liquids in small quantities. White blood cell count remains elevated. Abdominal examination reveals minimal tenderness. Incision is clean and dry. Continue to follow leukocytosis. Increase activity. Increase diet tomorrow. Objective - Vital Signs Vital signs: Vital Signs Temp 97.3 F L 09/07/20 13:02 Pulse 98 09/07/20 13:02 Resp 16 09/07/20 13:02 BP 122/79 09/07/20 13:02 Pulse Ox 100 09/07/20 13:02 Intake & Output 09/06/20 09/07/20 09/07/20 18:59 06:59 18:59 Intake Total 436 300 60 Output Total 151 400 Balance 436 149 -340 Intake: Intake, IV Titration 200 Amount D5-0.45% NaCl with KCl 200 20Meq/l 1,000 ml @ 125 mls/hr IV .Q8H [facility] Rx#: [id number] Oral 236 300 60 Output: Urine 150 400 Urine/Stool Mix 1 Other: Voiding Method Toilet Toilet Toilet # Voids 2 # Bowel Movements 0 2 - Labs CBC & Chem 7: 09/07/20 05:26 09/07/20 05:26 Labs: Abnormal Lab Results - Last 24 Hours (Table) 09/06/20 09/07/20 09/07/20 Range/Units 17:00 05:26 05:26 WBC 18.2 H (3.8-10.6) k/uL Hgb 8.9 L (11.4-16.0) gm/dL Hct 31.6 L (34.0-46.0) % MCV 76.0 L (80.0-100.0) fL MCH 21.3 L (25.0-35.0) pg MCHC 28.1 L (31.0-37.0) g/dL RDW 16.0 H (11.5-15.5) % Neutrophils # 16.3 H (1.3-7.7) k/uL Lymphocytes # 0.9 L (1.0-4.8) k/uL Sodium 133 L (135-145) mmol/L Carbon Dioxide 20.8 L (21.6-31.8) mmol/L Est GFR (CKD-EPI)AfAm 47.7 L (60.0-200.0) Est GFR (CKD-EPI)NonAf 41.2 L (60.0-200.0) AST 11 L (13-35) U/L Alkaline Phosphatase 128 H (41-126) U/L Total Protein 4.6 L (6.2-8.2) g/dL Albumin 2.80 L (3.80-4.90) g/dL Albumin/Globulin Ratio 1.56 L (1.60-3.17) g/dL Urine Appearance Cloudy H (Clear) Urine Protein Trace H (Negative) Urine Blood Small H (Negative) Ur Leukocyte Esterase Small H (Negative) Urine RBC 7 H (0-5) /hpf Urine WBC 14 H (0-5) /hpf Ur Squamous Epith Cells 6 H (0-4) /hpf Urine Bacteria Rare H (None) /hpf Hyaline Casts 26 H (0-2) /lpf Urine Mucus Occasional H (None) /hpf Microbiology - Last 24 Hours (Table) 09/06/20 17:00 Urine Culture - Preliminary Urine,Voided
[2020-09-07] MEDS ORDERED: DEXTROSE 5%-0.45% NACL 1,000 ML IV SCH (16:30)
--- NOTE | 2020-09-07 18:40 | P.PN ---
Subjective Progress Note Date: 09/07/20 Sary Veronica, is an 85-year-old female who was admitted to [facility] by Dr. Tracey, and underwent Exploratory laparotomy with right colectomy on 09/04/2020, patient was subsequently admitted to medical floor, medical consultation was requested for management while hospitalized. Past medical history is significant for history of hypertension, history of hyperlipidemia, history of anemia, history of osteoarthritis, history of paroxysmal atrial fibrillation, history of diverticulosis, and history of major depression. On review of systems patient is alert and oriented 3 in no distress she was seen postoperatively on the medical floor she is complaining of mild pain in the abdomen otherwise she denies any complaints, there is no fever or chills no headache or dizziness no chest pain no shortness of breath no cough no nausea or vomiting no abdominal pain no diarrhea no blood in the stools no burning with urination no frequency or urgency and no hematuria On 09/05/2020 patient was seen and examined on the medical floor she is alert and oriented in no apparent distress she is complaining of some abdominal discomfort otherwise she denies any complaints throughout last night patient had some episodes of tachycardia , lab reviews is showing evidence of leukocytosis otherwise no abnormality at this time there is no fever or chills no headache or dizziness no chest pain no shortness of breath no cough no nausea or vomiting no abdominal pain no diarrhea no blood in the stools no burning with urination no frequency or urgency and no hematuria On 09/06/2020 patient is more alert and oriented today. Had bouts of confusion and paranoia throughout night. Patient does have known past medical history of dementia. Patient's daughter is at bedside. Patient has improved in mentation. White blood cell is elevated 18.3 and heart rate remains tachycardia with known atrial fibrillation. At this time will order urinary analysis, urine culture, blood culture and chest x-ray to rule out any signs of infection. Patient is extremely hard of hearing but denies any chest pain or shortness breath. Patient denies nausea vomiting or diarrhea. Patient denies any urinary burning or frequency On 09/07/2020 patient is more alert and oriented today. Patient has improved in mentation. White blood cell is elevated 18.3 and heart rate remains tachycardia with known atrial fibrillation. At this time will order urinary analysis, urine culture, blood culture and chest x-ray to rule out any signs of infection. Patient is extremely hard of hearing but denies any chest pain or shortness breath. Patient denies nausea vomiting or diarrhea. Patient denies any urinary burning or frequency. Urine analysis reveals evidence of urinary tract infection patient was started on IV Rocephin Objective - Vital Signs Vital signs: Vital Signs Temp 97.3 F L 09/07/20 13:02 Pulse 98 09/07/20 13:02 Resp 16 09/07/20 13:02 BP 122/79 09/07/20 13:02 Pulse Ox 100 09/07/20 13:02 Intake & Output 09/06/20 09/07/20 09/07/20 18:59 06:59 18:59 Intake Total 984 284 9052 Output Total 151 400 Balance 436 149 980 Intake: Intake, IV Titration 200 1200 Amount D5-0.45% NaCl with KCl 200 1200 20Meq/l 1,000 ml @ 125 mls/hr IV .Q8H [facility] Rx#: [id number] Oral 236 300 180 Output: Urine 150 400 Urine/Stool Mix 1 Other: Voiding Method Toilet Toilet Toilet # Voids 2 2 # Bowel Movements 0 1 - Exam In general patient is alert and oriented 3 in no apparent distress HEENT head normocephalic and atraumatic, there is constant tremor of the lower mandible Neck is supple no JVD no goiter no lymphadenopathy Chest exam reveals a few scattered crackles no wheezing Cardiac exam reveals irregular heart sounds no gallops no murmurs Abdomen is soft with mild tenderness in the right lower quadrant no organomegaly no palpable masses Extremity exam reveals 2 edema no cyanosis or clubbing Neurological examination reveals no gross focal deficit - Labs CBC & Chem 7: 09/07/20 05:26 09/07/20 05:26 Labs: Abnormal Lab Results - Last 24 Hours (Table) 09/07/20 09/07/20 Range/Units 05:26 05:26 WBC 18.2 H (3.8-10.6) k/uL Hgb 8.9 L (11.4-16.0) gm/dL Hct 31.6 L (34.0-46.0) % MCV 76.0 L (80.0-100.0) fL MCH 21.3 L (25.0-35.0) pg MCHC 28.1 L (31.0-37.0) g/dL RDW 16.0 H (11.5-15.5) % Neutrophils # 16.3 H (1.3-7.7) k/uL Lymphocytes # 0.9 L (1.0-4.8) k/uL Sodium 133 L (135-145) mmol/L Carbon Dioxide 20.8 L (21.6-31.8) mmol/L Est GFR (CKD-EPI)AfAm 47.7 L (60.0-200.0) Est GFR (CKD-EPI)NonAf 41.2 L (60.0-200.0) AST 11 L (13-35) U/L Alkaline Phosphatase 128 H (41-126) U/L Total Protein 4.6 L (6.2-8.2) g/dL Albumin 2.80 L (3.80-4.90) g/dL Albumin/Globulin Ratio 1.56 L (1.60-3.17) g/dL Microbiology - Last 24 Hours (Table) 09/06/20 15:28 Blood Culture - Preliminary Blood No Growth after 24 hours 09/06/20 17:00 Urine Culture - Preliminary Urine,Voided Assessment and Plan Plan: Right colon lesion status post right colectomy Underlying history of hypertension Underlying history of hyperlipidemia Underlying history of gout Underlying history of depression Known atrial fibrillation with elevated heart rate. Continue fluids at 100. Patient is on Xarelto for anticoagulation. Leukocytosis. Will order UA, UC, blood culture and chest x-ray , patient has evidence of urinary tract infection she was started on IV Rocephin 1 g every 24 hours Increased confusion. Patient has known dementia. Rule rule out infection. Mentation is improved
[2020-09-07] MEDS: SERTRALINE 100 MG TAB PO SCH (20:07)
[2020-09-07] MEDS: MIRTAZAPINE 15 MG TAB PO SCH (20:07)
[2020-09-07] MEDS: HYDROmorphone 1 MG/ML 1 ML SYRINGE IVP PRN (23:16)
[2020-09-08] MEDS: LACTATED RINGERS 1,000 ML IV SCH (00:51)
[2020-09-08] MEDS: RIVAROXABAN 20 MG TAB PO SCH ×2 (08:45→09:22)
[2020-09-08] MEDS: METOPROLOL SUCCINATE (ER) 50 MG TAB.ER.24H PO SCH (08:45)
[2020-09-08] MEDS: TORSEMIDE 20 MG TAB PO SCH (08:45)
[2020-09-08] MEDS: SPIRONOLACTONE 25 MG TAB PO SCH (08:45)
[2020-09-08] MEDS: CHOLECALCIFEROL 25 MCG (1000 IU) TABLET PO SCH ×3 (08:46→09:23)
[2020-09-08] MEDS: PANTOPRAZOLE 40 MG TABLET PO SCH ×2 (08:46→09:16)
[2020-09-08] MEDS: allopurinoL 100 MG TAB PO SCH (08:46)
[2020-09-08] MEDS: RIVASTIGMINE 4.6MG/24HR PATCH TRANSDERM SCH (08:46)
[2020-09-08] MEDS: DILTIAZEM CD 120 MG CAP.ER.24H PO SCH (08:46)
[2020-09-08] MEDS: FERROUS SULFATE 325 MG TAB PO SCH ×2 (08:46→09:22)
[2020-09-08] MEDS: MAGNESIUM OXIDE 400 MG TAB PO SCH ×3 (08:50→22:05)
[2020-09-08] MEDS: POTASSIUM CHLORIDE ER 20 MEQ TAB.ER PO SCH ×3 (08:50→09:21)
--- NOTE | 2020-09-08 11:18 | P.PN ---
Subjective Progress Note Date: 09/08/20 Sary Veronica, is an 85-year-old female who was admitted to [facility] by Dr. Tracey, and underwent Exploratory laparotomy with right colectomy on 09/04/2020, patient was subsequently admitted to medical floor, medical consultation was requested for management while hospitalized. Past medical history is significant for history of hypertension, history of hyperlipidemia, history of anemia, history of osteoarthritis, history of paroxysmal atrial fibrillation, history of diverticulosis, and history of major depression. On review of systems patient is alert and oriented 3 in no distress she was seen postoperatively on the medical floor she is complaining of mild pain in the abdomen otherwise she denies any complaints, there is no fever or chills no headache or dizziness no chest pain no shortness of breath no cough no nausea or vomiting no abdominal pain no diarrhea no blood in the stools no burning with urination no frequency or urgency and no hematuria On 09/05/2020 patient was seen and examined on the medical floor she is alert and oriented in no apparent distress she is complaining of some abdominal discomfort otherwise she denies any complaints throughout last night patient had some episodes of tachycardia , lab reviews is showing evidence of leukocytosis otherwise no abnormality at this time there is no fever or chills no headache or dizziness no chest pain no shortness of breath no cough no nausea or vomiting no abdominal pain no diarrhea no blood in the stools no burning with urination no frequency or urgency and no hematuria On 09/06/2020 patient is more alert and oriented today. Had bouts of confusion and paranoia throughout night. Patient does have known past medical history of dementia. Patient's daughter is at bedside. Patient has improved in mentation. White blood cell is elevated 18.3 and heart rate remains tachycardia with known atrial fibrillation. At this time will order urinary analysis, urine culture, blood culture and chest x-ray to rule out any signs of infection. Patient is extremely hard of hearing but denies any chest pain or shortness breath. Patient denies nausea vomiting or diarrhea. Patient denies any urinary burning or frequency On 09/07/2020 patient is more alert and oriented today. Patient has improved in mentation. White blood cell is elevated 18.3 and heart rate remains tachycardia with known atrial fibrillation. At this time will order urinary analysis, urine culture, blood culture and chest x-ray to rule out any signs of infection. Patient is extremely hard of hearing but denies any chest pain or shortness breath. Patient denies nausea vomiting or diarrhea. Patient denies any urinary burning or frequency. Urine analysis reveals evidence of urinary tract infection patient was started on IV Rocephin On 09/08/2020 patient is alert and oriented to having bouts of confusion and paranoia. Patient is currently resting in chair. Patient was a valid by psychiatry services held all added. Did discuss case with surgical team planning to keep patient until Friday. Patient remains on IV Rocephin for UTI. Urine culture pending. Patient denies chest pain or shortness breath. Patient denies nausea vomiting or diarrhea. Patient denies any urinary burning or frequency Objective - Vital Signs Vital signs: Vital Signs Temp 97.5 F L 09/08/20 07:12 Pulse 105 H 09/08/20 10:22 Resp 17 09/08/20 10:22 BP 126/75 09/08/20 07:12 Pulse Ox 94 L 09/08/20 08:44 Intake & Output 09/07/20 09/08/20 09/08/20 18:59 06:59 18:59 Intake Total 1380 500 Output Total 400 Balance 980 500 Intake: Intake, IV Titration 1200 500 Amount D5-0.45% NaCl with KCl 1200 20Meq/l 1,000 ml @ 125 mls/hr IV .Q8H [facility] Rx#: [id number] Dextrose 5%-0.45% NaCl 1, 450 000 ml @ 50 mls/hr IV . Q20H [facility] Rx#:[id number] cefTRIAXone 1 gm In 50 Sodium Chloride 0.9% 50 ml @ 100 mls/hr IVPB Q24H [facility] Rx#:[id number] Oral 180 Output: Urine 400 Other: Voiding Method Toilet Bedside Commode Bedside Commode # Voids 2 1 # Bowel Movements 1 1 1 - Exam In general patient is alert and oriented 3 in no apparent distress HEENT head normocephalic and atraumatic, there is constant tremor of the lower mandible Neck is supple no JVD no goiter no lymphadenopathy Chest exam reveals a few scattered crackles no wheezing Cardiac exam reveals irregular heart sounds no gallops no murmurs Abdomen is soft with mild tenderness in the right lower quadrant no organomegaly no palpable masses Extremity exam reveals 2 edema no cyanosis or clubbing Neurological examination reveals no gross focal deficit - Labs CBC & Chem 7: 09/07/20 05:26 09/07/20 05:26 Labs: Microbiology - Last 24 Hours (Table) 09/06/20 17:00 Urine Culture - Final Urine,Voided 09/06/20 15:28 Blood Culture - Preliminary Blood No Growth after 24 hours Assessment and Plan Plan: Right colon lesion status post right colectomy Underlying history of hypertension Underlying history of hyperlipidemia Underlying history of gout Underlying history of depression Known atrial fibrillation with elevated heart rate. Patient is on Xarelto for anticoagulation. Leukocytosis and evidence of UTI. Urine culture pending. Patient started on Rocephin Increased confusion with paranoia. Patient was evaluated by psychiatry services no changes to current medication regime although added DVT prophylaxis Xarelto. GI prophylaxis Protonix
--- NOTE | 2020-09-08 11:35 | P.PN ---
<Ester Johnson - Last Filed: 09/08/20 11:28> Subjective Progress Note Date: 09/08/20 CHIEF COMPLAINT: Right-sided colon cancer HISTORY OF PRESENT ILLNESS: Patient is status post exploratory laparotomy with right colectomy. Patient sitting up at bedside chair. She is hard of hearing. She is still confused. She is tolerating diet. Denies any nausea or vomiting. Patient has had bowel movements. Denies any nausea or vomiting. Patient denies any abdominal pain. Afebrile . Heart rate 105 labs pending. Assessment did add Rocephin for possible UTI. Urine culture shows contamination PHYSICAL EXAM: VITAL SIGNS: Reviewed. GENERAL: Well-developed in no acute distress. HEENT: No sclera icterus. Extraocular movements grossly intact. Moist buccal mucosa. Head is atraumatic, normocephalic. ABDOMEN: Soft. Nondistended. Incision site clean dry and intact NEUROLOGIC: confused ASSESSMENT: 1. Right-sided colon cancer status post exploratory laparotomy with right colectomy. Postop day #4 2. Hypokalemia improved 3. History of atrial fibrillation anticoagulated with Xarelto 4. Leukocytosis continue to monitor PLAN: -Diet advanced this morning to low fiber dysphagia level III diet -Continue Tylenol as needed for pain -Continue IV fluids -Encourage incentive spirometer use -Increase activity level -GI prophylaxis Protonix and DVT prophylaxis Xarelto Physician Stock Raiser note has been reviewed by physician. Signing provider agrees with the documented findings, assessment, and plan of care. Objective - Vital Signs Vital signs: Vital Signs Temp 97.5 F L 09/08/20 07:12 Pulse 105 H 09/08/20 10:22 Resp 17 09/08/20 10:22 BP 126/75 09/08/20 07:12 Pulse Ox 94 L 09/08/20 08:44 Intake & Output 09/07/20 09/08/20 09/08/20 18:59 06:59 18:59 Intake Total 1380 500 Output Total 400 Balance 980 500 Intake: Intake, IV Titration 1200 500 Amount D5-0.45% NaCl with KCl 1200 20Meq/l 1,000 ml @ 125 mls/hr IV .Q8H [facility] Rx#: [id number] Dextrose 5%-0.45% NaCl 1, 450 000 ml @ 50 mls/hr IV . Q20H [facility] Rx#:[id number] cefTRIAXone 1 gm In 50 Sodium Chloride 0.9% 50 ml @ 100 mls/hr IVPB Q24H [facility] Rx#:[id number] Oral 180 Output: Urine 400 Other: Voiding Method Toilet Bedside Commode Bedside Commode # Voids 2 1 # Bowel Movements 1 1 1 - Labs CBC & Chem 7: 09/07/20 05:26 09/07/20 05:26 Labs: Microbiology - Last 24 Hours (Table) 09/06/20 17:00 Urine Culture - Final Urine,Voided 09/06/20 15:28 Blood Culture - Preliminary Blood No Growth after 24 hours <Raji Tracey - Last Filed: 09/08/20 16:54> Subjective As above. Patient remains confused but improved from yesterday. Denies pain. Abdomen remains soft with minimal tenderness. White blood cell count increased further. We'll order CT abdomen and pelvis at this time. Objective - Vital Signs Vital signs: Vital Signs Temp 98.3 F 09/08/20 12:45 Pulse 112 H 09/08/20 12:45 Resp 18 09/08/20 12:45 BP 137/75 09/08/20 12:45 Pulse Ox 99 09/08/20 12:45 Intake & Output 09/07/20 09/08/20 09/08/20 18:59 06:59 18:59 Intake Total 1380 500 Output Total 400 Balance 980 500 Intake: Intake, IV Titration 1200 500 Amount D5-0.45% NaCl with KCl 1200 20Meq/l 1,000 ml @ 125 mls/hr IV .Q8H [facility]I Rx#: [id number] Dextrose 5%-0.45% NaCl 1, 450 000 ml @ 50 mls/hr IV . Q20H [facility] Rx#:[id number] cefTRIAXone 1 gm In 50 Sodium Chloride 0.9% 50 ml @ 100 mls/hr IVPB Q24H [facility] Rx#:[id number] Oral 180 Output: Urine 400 Other: Voiding Method Toilet Bedside Commode Bedside Commode # Voids 2 1 1 # Bowel Movements 1 1 1 - Labs CBC & Chem 7: 09/08/20 13:32 09/08/20 13:32 Labs: Abnormal Lab Results - Last 24 Hours (Table) 09/08/20 09/08/20 Range/Units 13:32 13:32 WBC 26.6 H (3.8-10.6) k/uL Hgb 10.0 L (11.4-16.0) gm/dL Hct 33.6 L (34.0-46.0) % MCV 76.5 L (80.0-100.0) fL MCH 22.7 L (25.0-35.0) pg MCHC 29.6 L (31.0-37.0) g/dL RDW 16.3 H (11.5-15.5) % Neutrophils # 24.9 H (1.3-7.7) k/uL Lymphocytes # 0.7 L (1.0-4.8) k/uL Sodium 130 L (137-145) mmol/L Potassium 5.2 H (3.5-5.1) mmol/L Carbon Dioxide 18 L (22-30) mmol/L Creatinine 1.21 H (0.52-1.04) mg/dL Glucose 109 H (74-99) mg/dL Microbiology - Last 24 Hours (Table) 09/06/20 17:00 Urine Culture - Final Urine,Voided 09/06/20 15:28 Blood Culture - Preliminary Blood No Growth after 24 hours
[2020-09-08 14:14] LABS: Anisocytosis Slight; Basophils % (A) 0 %; Eosinophils # (A) 0.1 k/uL (0-0.7); Eosinophils % (A) 0 %; HCT 33.6 % (34.0-46.0); Hypochromasia Marked; Lymphocytes # (A) 0.7 k/uL (1.0-4.8); Lymphocytes % (A) 3 %; MCH 22.7 pg (25.0-35.0); MCHC 29.6 g/dL (31.0-37.0); MCV 76.5 fL (80.0-100.0); Mean Platelet Volume 6.9; Microcytosis Slight; Monocytes # (A) 0.8 k/uL (0-1.0); Monocytes % (A) 3 %; Neutrophils # (A) 24.9 k/uL (1.3-7.7); Neutrophils % (A) 94 %; Platelet Count 443 k/uL (150-450); RDW 16.3 % (11.5-15.5); WBC 26.6 k/uL (3.8-10.6)
[2020-09-08 14:29] LABS: African American GFR (CKD) 47 (>60 ml/min/1.73 sqM); Anion Gap 8 mmol/L; Blood Urea Nitrogen 17 mg/dL (7-17); Calcium 9.4 mg/dL (8.4-10.2); Carbon Dioxide 18 mmol/L (22-30); Chloride 104 mmol/L (98-107); Glucose 109 mg/dL (74-99); Non-African American GFR(CKD) 41 (>60 ml/min/1.73 sqM); Potassium 5.2 mmol/L (3.5-5.1); Sodium 130 mmol/L (137-145)
[2020-09-08] MEDS: PIPERACILLIN-TAZOBACTAM 3.375 GM in SODIUM CHLORIDE 0.9% 100 ML IVPB SCH ×2 (15:54→23:55)
[2020-09-08] MEDS ORDERED: IOPAMIDOL CONTRAST (ORAL USE) VIAL PO PRN (16:54)
[2020-09-08] MEDS ORDERED: CEFDINIR 300 MG CAP PO SCH (21:00)
[2020-09-08] MEDS: MELATONIN 1 MG TAB PO SCH (22:05)
[2020-09-08] MEDS: SERTRALINE 100 MG TAB PO SCH (22:05)
[2020-09-08] MEDS: FAMOTIDINE 20 MG TAB PO SCH (22:05)
[2020-09-08] MEDS: MIRTAZAPINE 15 MG TAB PO SCH (22:05)
--- NOTE | 2020-09-09 00:26 | CT ---
EXAMINATION TYPE: CT abdomen pelvis wo con DATE OF EXAM: 09/08/2020 COMPARISON: 08/05/2020 HISTORY: Post colectomy with leukocytosis. CT DLP: 694.2 mGycm Automated exposure control for dose reduction was used. Heart appears enlarged. There is some mild interstitial infiltrate at the lung bases. There is no ple ural effusion. There is no pericardial effusion. There are clips from cholecystectomy. Liver shows no focal defect. Exam is limited by patient's size. Spleen is intact. There is no sign of pancreatic ma ss. The stomach appears intact. There are skin barbara in the midline anterior abdomen. There is subc utaneous air in the midline abdomen from apparent recent surgery. There is no adrenal mass. Kidneys show normal size and contour. There is no hydronephrosis. There is probably 1 cm cortical cyst lateral right kidney. There is no retroperitoneal adenopathy. Ureters are not dilated. Bladder is almost empty. There are a few air bubbles in the bladder probably from catheterization. I see no pelvic mass. There is some mild free fluid in the pelvis with low-attenuation. There are multi ple sigmoid diverticula. I see no sign of diverticulitis. There is apparent right colectomy. I see no evidence of pneumoperitoneum. There is no evidence of bowel obstruction. There is no mesenteric lizbeth a. Lumbar vertebra have normal alignment. There is vacuum disc phenomenon and moderate spondylotic ch anges. There is some mild L3-4 spinal stenosis. There is no compression fracture. The bony pelvis is intact. There is mild compression fractures of L4 and L3 vertebra up to 20%. These fractures unchange d. IMPRESSION: There is mild low density free fluid in the pelvis. Previous surgery. No bowel obstruction. Colonic d iverticulosis without diverticulitis. Fluid in the pelvis is new compared to old exam. There is clear ing of the masslike density involving the cecum compared to old exam. There is improvement in the mild interstitial infiltrates at the lung bases compared to old exam. Car diomegaly unchanged.
[2020-09-09] MEDS: METOPROLOL SUCCINATE (ER) 50 MG TAB.ER.24H PO SCH (04:51)
[2020-09-09] MEDS: LACTATED RINGERS 1,000 ML IV SCH (04:52)
[2020-09-09 07:10] LABS: Anisocytosis Slight; Basophils % (A) 0 %; Eosinophils # (A) 0.3 k/uL (0-0.7); Eosinophils % (A) 1 %; HCT 28.6 % (34.0-46.0); HGB 8.7 gm/dL (11.4-16.0); Hypochromasia Marked; Lymphocytes # (A) 0.7 k/uL (1.0-4.8); Lymphocytes % (A) 4 %; MCH 22.3 pg (25.0-35.0); MCHC 30.2 g/dL (31.0-37.0); MCV 73.7 fL (80.0-100.0); Mean Platelet Volume 7.7; Microcytosis Slight; Monocytes % (A) 5 %; Neutrophils # (A) 17.5 k/uL (1.3-7.7); Neutrophils % (A) 89 %; Platelet Count 377 k/uL (150-450); Poikilocytosis Slight; RBC 3.88 m/uL (3.80-5.40); RDW 16.3 % (11.5-15.5); WBC 19.7 k/uL (3.8-10.6)
[2020-09-09 07:38] LABS: ALT 10 U/L (4-34); AST 17 U/L (14-36); African American GFR (CKD) 44 (>60 ml/min/1.73 sqM); Albumin 2.3 g/dL (3.5-5.0); Alkaline Phosphatase 120 U/L (38-126); Anion Gap 6 mmol/L; Blood Urea Nitrogen 18 mg/dL (7-17); Calcium 8.9 mg/dL (8.4-10.2); Carbon Dioxide 19 mmol/L (22-30); Chloride 106 mmol/L (98-107); Globulin 2.4 g/dL; Glucose 68 mg/dL (74-99); Non-African American GFR(CKD) 38 (>60 ml/min/1.73 sqM); Potassium 4.5 mmol/L (3.5-5.1); Sodium 131 mmol/L (137-145); Total Bilirubin 0.5 mg/dL (0.2-1.3); Total Protein 4.7 g/dL (6.3-8.2)
[2020-09-09] MEDS: RIVAROXABAN 20 MG TAB PO SCH (09:05)
[2020-09-09] MEDS: DILTIAZEM CD 120 MG CAP.ER.24H PO SCH (09:05)
[2020-09-09] MEDS: TORSEMIDE 20 MG TAB PO SCH (09:06)
[2020-09-09] MEDS: SPIRONOLACTONE 25 MG TAB PO SCH (09:06)
[2020-09-09] MEDS: PANTOPRAZOLE 40 MG TABLET PO SCH (09:06)
[2020-09-09] MEDS: CHOLECALCIFEROL 25 MCG (1000 IU) TABLET PO SCH (09:06)
[2020-09-09] MEDS: allopurinoL 100 MG TAB PO SCH (09:06)
[2020-09-09] MEDS: RIVASTIGMINE 4.6MG/24HR PATCH TRANSDERM SCH (09:06)
[2020-09-09] MEDS: PIPERACILLIN-TAZOBACTAM 3.375 GM in SODIUM CHLORIDE 0.9% 100 ML IVPB SCH ×2 (09:06→16:29)
[2020-09-09] MEDS: FERROUS SULFATE 325 MG TAB PO SCH (09:06)
[2020-09-09] MEDS: MAGNESIUM OXIDE 400 MG TAB PO SCH ×2 (09:07→21:40)
--- NOTE | 2020-09-09 10:06 | P.PN ---
Subjective Progress Note Date: 09/09/20 Sary Veronica, is an 85-year-old female who was admitted to [facility] by Dr. Tracey, and underwent Exploratory laparotomy with right colectomy on 09/04/2020, patient was subsequently admitted to medical floor, medical consultation was requested for management while hospitalized. Past medical history is significant for history of hypertension, history of hyperlipidemia, history of anemia, history of osteoarthritis, history of paroxysmal atrial fibrillation, history of diverticulosis, and history of major depression. On review of systems patient is alert and oriented 3 in no distress she was seen postoperatively on the medical floor she is complaining of mild pain in the abdomen otherwise she denies any complaints, there is no fever or chills no headache or dizziness no chest pain no shortness of breath no cough no nausea or vomiting no abdominal pain no diarrhea no blood in the stools no burning with urination no frequency or urgency and no hematuria On 09/05/2020 patient was seen and examined on the medical floor she is alert and oriented in no apparent distress she is complaining of some abdominal discomfort otherwise she denies any complaints throughout last night patient had some episodes of tachycardia , lab reviews is showing evidence of leukocytosis otherwise no abnormality at this time there is no fever or chills no headache or dizziness no chest pain no shortness of breath no cough no nausea or vomiting no abdominal pain no diarrhea no blood in the stools no burning with urination no frequency or urgency and no hematuria On 09/06/2020 patient is more alert and oriented today. Had bouts of confusion and paranoia throughout night. Patient does have known past medical history of dementia. Patient's daughter is at bedside. Patient has improved in mentation. White blood cell is elevated 18.3 and heart rate remains tachycardia with known atrial fibrillation. At this time will order urinary analysis, urine culture, blood culture and chest x-ray to rule out any signs of infection. Patient is extremely hard of hearing but denies any chest pain or shortness breath. Patient denies nausea vomiting or diarrhea. Patient denies any urinary burning or frequency On 09/07/2020 patient is more alert and oriented today. Patient has improved in mentation. White blood cell is elevated 18.3 and heart rate remains tachycardia with known atrial fibrillation. At this time will order urinary analysis, urine culture, blood culture and chest x-ray to rule out any signs of infection. Patient is extremely hard of hearing but denies any chest pain or shortness breath. Patient denies nausea vomiting or diarrhea. Patient denies any urinary burning or frequency. Urine analysis reveals evidence of urinary tract infection patient was started on IV Rocephin On 09/08/2020 patient is alert and oriented to having bouts of confusion and paranoia. Patient is currently resting in chair. Patient was a valid by psychiatry services bob added. Did discuss case with surgical team planning to keep patient until Friday. Patient remains on IV Rocephin for UTI. Urine culture pending. Patient denies chest pain or shortness breath. Patient denies nausea vomiting or diarrhea. Patient denies any urinary burning or frequency On 09/09/2020 patient is alert and more oriented today. White blood cell improving in 19.7. She remains on IV antibiotics Zosyn. Patient denies chest pain or shortness of breath. Patient denies nausea vomiting or diarrhea. Patient denies any urinary burning or frequency Objective - Vital Signs Vital signs: Vital Signs Temp 97.8 F 09/09/20 04:30 Pulse 136 H 09/09/20 05:34 Resp 18 09/09/20 04:30 BP 126/87 09/09/20 04:30 Pulse Ox 100 09/09/20 04:30 Intake & Output 09/08/20 09/09/20 09/09/20 18:59 06:59 18:59 Intake Total 600 Balance 600 Intake: Oral 600 Other: Voiding Method Bedside Commode Diaper # Voids 1 3 # Bowel Movements 1 - Exam In general patient is alert and oriented 3 in no apparent distress HEENT head normocephalic and atraumatic, there is constant tremor of the lower mandible Neck is supple no JVD no goiter no lymphadenopathy Chest exam reveals a few scattered crackles no wheezing Cardiac exam reveals irregular heart sounds no gallops no murmurs Abdomen is soft with mild tenderness in the right lower quadrant no organomegaly no palpable masses Extremity exam reveals 2 edema no cyanosis or clubbing Neurological examination reveals no gross focal deficit - Labs CBC & Chem 7: 09/09/20 06:12 09/09/20 06:12 Labs: Abnormal Lab Results - Last 24 Hours (Table) 09/08/20 09/08/20 09/09/20 Range/Units 13:32 13:32 06:12 WBC 26.6 H 19.7 H (3.8-10.6) k/uL Hgb 10.0 L 8.7 L (11.4-16.0) gm/dL Hct 33.6 L 28.6 L (34.0-46.0) % MCV 76.5 L 73.7 L (80.0-100.0) fL MCH 22.7 L 22.3 L (25.0-35.0) pg MCHC 29.6 L 30.2 L (31.0-37.0) g/dL RDW 16.3 H 16.3 H (11.5-15.5) % Neutrophils # 24.9 H 17.5 H (1.3-7.7) k/uL Lymphocytes # 0.7 L 0.7 L (1.0-4.8) k/uL Sodium 130 L (137-145) mmol/L Potassium 5.2 H (3.5-5.1) mmol/L Carbon Dioxide 18 L (22-30) mmol/L BUN (7-17) mg/dL Creatinine 1.21 H (0.52-1.04) mg/dL Glucose 109 H (74-99) mg/dL Total Protein (6.3-8.2) g/dL Albumin (3.5-5.0) g/dL 09/09/20 Range/Units 06:12 WBC (3.8-10.6) k/uL Hgb (11.4-16.0) gm/dL Hct (34.0-46.0) % MCV (80.0-100.0) fL MCH (25.0-35.0) pg MCHC (31.0-37.0) g/dL RDW (11.5-15.5) % Neutrophils # (1.3-7.7) k/uL Lymphocytes # (1.0-4.8) k/uL Sodium 131 L (137-145) mmol/L Potassium (3.5-5.1) mmol/L Carbon Dioxide 19 L (22-30) mmol/L BUN 18 H (7-17) mg/dL Creatinine 1.29 H (0.52-1.04) mg/dL Glucose 68 L (74-99) mg/dL Total Protein 4.7 L (6.3-8.2) g/dL Albumin 2.3 L (3.5-5.0) g/dL Microbiology - Last 24 Hours (Table) 09/08/20 16:35 Gram Stain - Preliminary Abdomen Wound Culture - Preliminary 09/06/20 15:28 Blood Culture - Preliminary Blood No Growth after 48 hours Assessment and Plan Plan: Right colon lesion status post right colectomy Underlying history of hypertension Underlying history of hyperlipidemia Underlying history of gout Underlying history of depression Known atrial fibrillation with elevated heart rate. Patient is on Xarelto for anticoagulation. Leukocytosis and evidence of UTI. Urine culture pending. She maintain on Zosyn Increased confusion with paranoia. Patient was evaluated by psychiatry services no changes to current medication haldol added DVT prophylaxis Xarelto. GI prophylaxis Protonix
[2020-09-09] MEDS: POTASSIUM CHLORIDE ER 20 MEQ TAB.ER PO SCH ×2 (10:28→21:40)
[2020-09-09] MEDS: SODIUM CHLORIDE 0.9% 1,000 ML IV SCH (12:20)
--- NOTE | 2020-09-09 13:18 | P.PN ---
Progress Note - Text Progress Note Date: 09/09/20 Patient is feeling well. She is extremely hard of hearing. She denies any significant pain. On exam her incision site is clean dry intact. There is no significant erythema or cellulitis incision. Abdomen soft. Status post right E. Patient continued receiving supportive care.
[2020-09-09] MEDS ORDERED: SODIUM CHLORIDE 0.9% 500 ML 500 ML IV ONE (21:19)
[2020-09-09] MEDS: MELATONIN 1 MG TAB PO SCH (21:41)
[2020-09-09] MEDS: MIRTAZAPINE 15 MG TAB PO SCH (21:41)
[2020-09-09] MEDS: SERTRALINE 100 MG TAB PO SCH (21:41)
[2020-09-09] MEDS: FAMOTIDINE 20 MG TAB PO SCH (21:42)
--- NOTE | 2020-09-10 00:34 | CONS ---
CONSULTATION DATE OF SERVICE: 09/09/2020. CONSULTATION: Leukocytosis. HISTORY OF PRESENT ILLNESS: The patient is an 85-year-old female who was electively admitted to the hospital on September 04 in this patient is status post laparotomy and right hemicolectomy for a right-sided colon cancer. Looking at the operative report, there was no evidence of any local perforation or peritonitis. The patient subsequently has been admitted to the hospital for medical management. The patient did not have any fever during this hospital stay. The patient did have a white count 16.11 day one postop and white count went up to 26.6 as of yesterday, however, down to 19.7 today. The patient did have a slightly elevated creatinine and liver enzymes are normal. Urine shows mild small leukocyte esterases, 14 WBCs. Carrington PCR was negative. Chest x-ray did not show any acute infiltrate. Infectious Disease was consulted today for further management and concern for elevated white count. The patient did have a CT of abdomen and pelvis completed around midnight and mentioned some free fluid in the pelvis, but no evidence of any other acute abnormality. The patient is currently being maintained on Zosyn that had been started last evening. The patient herself is very hard of hearing and very hard to get any information from her, but she is currently breathing comfortably on room air. When asked specifically, she denies any headache. No chest pain, shortness of breath or cough. Denies any abdominal pain. No nausea, vomiting, or any diarrhea. No urinary symptoms. REVIEW OF SYSTEMS: Positive points have been mentioned in HPI. Rest of systems are negative. PAST MEDICAL HISTORY: Atrial fibrillation, heart failure, dementia, hypertension, osteoarthritis, pneumonia . PAST SURGICAL HISTORY: Cholecystectomy, hernia repair, joint replacement, pacemaker placement, bilateral knee replaced, left shoulder repair, umbilical hernia repair, also had a pacemaker placement. SOCIAL HISTORY: Remote history of smoking, quit back. FAMILY HISTORY: No pertinent findings noticed. ALLERGIES: No known drug allergies. MEDICATIONS: The patient is currently on Zosyn, Tylenol, Zyloprim, vitamin D3, iron sulfate, Haldol, Dilaudid, melatonin, Toprol-XL, Zofran, Protonix, Xarelto, Zoloft and IV fluids. PHYSICAL EXAMINATION: Blood pressure 101/76, pulse of 109. Temperature 97.8. She is 98% on room air. General description: The patient is an elderly female up in the chair in no distress. No tachypnea or accessory muscles of respiration use. HEENT: Shows slight pallor. No scleral icterus. Oral mucous membranes dry. NECK: Trachea central. No thyromegaly. LUNGS unlabored breathing, decreased breath sounds at bases. No wheeze. HEART: S1, S2. Regular rate and rhythm. Abdomen soft. Midline incision is currently clean with no swelling, no redness, no drainage. Slightly tender on the right side though. EXTREMITIES are no edema of the feet. SKIN examination: No rash or mass palpable. NEUROLOGICAL: Patient awake and alert and oriented times three. Mood and affect normal. LABS: Hemoglobin is 8.6, white count 19.7, BUN of 18, creatinine 1.29. Urine is negative. Blood cultures on September 06 so far negative. Urine is negative. She did have some culture from abdominal wound which is currently pending. DIAGNOSTIC IMPRESSION AND PLAN: Patient with an elevated white count in this patient who is status post laparotomy and right colectomy for the malignancy with no evidence of any perforation or leakage that was described on operative report. The patient did not have any other obvious focus of infection. Currently breathing comfortably on room air. Lungs are clear to auscultation. Urine was not significantly positive. No evidence of any cellulitis. abdominal question of postop reactive versus abdominal source though CT of abdomen and pelvis was negative except some pelvic fluid and the patient white count seemed to respond to Zosyn that was added yesterday. PLAN: 1. We will keep the patient on Zosyn 3.37 g q.8 hours for now. 2. Obtain blood cultures as well as CRP and procalcitonin. 3. Gentle IV fluid. 4. We will follow on clinical condition and culture to further adjust medication if needed. Thank you for this consultation. We will follow this patient along with you. MMODL / IJN: [id number] /
[2020-09-10] MEDS: PIPERACILLIN-TAZOBACTAM 3.375 GM in SODIUM CHLORIDE 0.9% 100 ML IVPB SCH ×4 (01:17→23:18)
[2020-09-10] MEDS: LACTATED RINGERS 1,000 ML IV SCH (06:15)
[2020-09-10 06:44] LABS: Anisocytosis Slight; Basophils % (A) 0 %; Eosinophils # (A) 0.5 k/uL (0-0.7); Eosinophils % (A) 4 %; HCT 27.4 % (34.0-46.0); HGB 8.5 gm/dL (11.4-16.0); Hypochromasia Marked; Lymphocytes # (A) 0.9 k/uL (1.0-4.8); Lymphocytes % (A) 8 %; MCH 22.9 pg (25.0-35.0); MCHC 31.1 g/dL (31.0-37.0); MCV 73.8 fL (80.0-100.0); Mean Platelet Volume 6.8; Microcytosis Slight; Monocytes # (A) 0.9 k/uL (0-1.0); Monocytes % (A) 7 %; Neutrophils # (A) 9.9 k/uL (1.3-7.7); Neutrophils % (A) 80 %; Platelet Count 313 k/uL (150-450); Poikilocytosis Slight; RBC 3.72 m/uL (3.80-5.40); RDW 16.3 % (11.5-15.5); WBC 12.4 k/uL (3.8-10.6)
[2020-09-10] MEDS: POTASSIUM CHLORIDE ER 20 MEQ TAB.ER PO SCH ×2 (09:31→20:16)
[2020-09-10] MEDS: allopurinoL 100 MG TAB PO SCH (09:31)
[2020-09-10] MEDS: RIVASTIGMINE 4.6MG/24HR PATCH TRANSDERM SCH (09:31)
[2020-09-10] MEDS: RIVAROXABAN 20 MG TAB PO SCH (09:31)
[2020-09-10] MEDS: DILTIAZEM CD 120 MG CAP.ER.24H PO SCH (09:31)
[2020-09-10] MEDS: MAGNESIUM OXIDE 400 MG TAB PO SCH ×2 (09:31→20:16)
[2020-09-10] MEDS: PANTOPRAZOLE 40 MG TABLET PO SCH (09:31)
[2020-09-10] MEDS: FERROUS SULFATE 325 MG TAB PO SCH (09:31)
[2020-09-10] MEDS: METOPROLOL SUCCINATE (ER) 50 MG TAB.ER.24H PO SCH (09:32)
[2020-09-10] MEDS: SODIUM CHLORIDE 0.9% 1,000 ML IV SCH (09:32)
[2020-09-10] MEDS: CHOLECALCIFEROL 25 MCG (1000 IU) TABLET PO SCH (09:32)
[2020-09-10 11:28] LABS: ALT <8 U/L (8-44); AST 10 U/L (13-35); African American GFR (CKD) 43.3 (60.0-200.0); Albumin/Globulin Ratio 1.63 (1.60-3.17); Alkaline Phosphatase 115 U/L (41-126); BUN/Creat Ratio 13.85 Ratio (12.00-20.00); Calcium 8.6 mg/dL (8.7-10.3); Carbon Dioxide 19.8 mmol/L (21.6-31.8); Chloride 111 mmol/L (96-109); Globulin 1.6 g/dL (1.6-3.3); Glucose 78 mg/dL (70-110); Non-African American GFR(CKD) 37.4 (60.0-200.0); Potassium 4.4 mmol/L (3.5-5.5); Sodium 142 mmol/L (135-145); Total Bilirubin 0.2 mg/dL (0.3-1.2); Total Protein 4.2 g/dL (6.2-8.2)
--- NOTE | 2020-09-10 14:36 | P.PN ---
Subjective Progress Note Date: 09/10/20 Sary Veronica, is an 85-year-old female who was admitted to [facility] by Dr. Tracey, and underwent Exploratory laparotomy with right colectomy on 09/04/2020, patient was subsequently admitted to medical floor, medical consultation was requested for management while hospitalized. Past medical history is significant for history of hypertension, history of hyperlipidemia, history of anemia, history of osteoarthritis, history of paroxysmal atrial fibrillation, history of diverticulosis, and history of major depression. On review of systems patient is alert and oriented 3 in no distress she was seen postoperatively on the medical floor she is complaining of mild pain in the abdomen otherwise she denies any complaints, there is no fever or chills no headache or dizziness no chest pain no shortness of breath no cough no nausea or vomiting no abdominal pain no diarrhea no blood in the stools no burning with urination no frequency or urgency and no hematuria On 09/05/2020 patient was seen and examined on the medical floor she is alert and oriented in no apparent distress she is complaining of some abdominal discomfort otherwise she denies any complaints throughout last night patient had some episodes of tachycardia , lab reviews is showing evidence of leukocytosis otherwise no abnormality at this time there is no fever or chills no headache or dizziness no chest pain no shortness of breath no cough no nausea or vomiting no abdominal pain no diarrhea no blood in the stools no burning with urination no frequency or urgency and no hematuria On 09/06/2020 patient is more alert and oriented today. Had bouts of confusion and paranoia throughout night. Patient does have known past medical history of dementia. Patient's daughter is at bedside. Patient has improved in mentation. White blood cell is elevated 18.3 and heart rate remains tachycardia with known atrial fibrillation. At this time will order urinary analysis, urine culture, blood culture and chest x-ray to rule out any signs of infection. Patient is extremely hard of hearing but denies any chest pain or shortness breath. Patient denies nausea vomiting or diarrhea. Patient denies any urinary burning or frequency On 09/07/2020 patient is more alert and oriented today. Patient has improved in mentation. White blood cell is elevated 18.3 and heart rate remains tachycardia with known atrial fibrillation. At this time will order urinary analysis, urine culture, blood culture and chest x-ray to rule out any signs of infection. Patient is extremely hard of hearing but denies any chest pain or shortness breath. Patient denies nausea vomiting or diarrhea. Patient denies any urinary burning or frequency. Urine analysis reveals evidence of urinary tract infection patient was started on IV Rocephin On 09/08/2020 patient is alert and oriented to having bouts of confusion and paranoia. Patient is currently resting in chair. Patient was a valid by psychiatry services bob added. Did discuss case with surgical team planning to keep patient until Friday. Patient remains on IV Rocephin for UTI. Urine culture pending. Patient denies chest pain or shortness breath. Patient denies nausea vomiting or diarrhea. Patient denies any urinary burning or frequency On 09/09/2020 patient is alert and more oriented today. White blood cell improving in 19.7. She remains on IV antibiotics Zosyn. Patient denies chest pain or shortness of breath. Patient denies nausea vomiting or diarrhea. Patient denies any urinary burning or frequency. On 09/10/2020 patient was seen and examined on the medical floor she is alert and oriented in no apparent distress, there is no fever or chills no headache or dizziness no chest pain no shortness of breath no cough no nausea or vomiting no abdominal pain no diarrhea no blood in the stools no burning with urination no frequency or urgency and no hematuria white blood count today is down to 12.4 down from 19.7 yesterday Objective - Vital Signs Vital signs: Vital Signs Temp 97.5 F L 09/10/20 04:18 Pulse 92 09/10/20 04:18 Resp 18 09/10/20 04:18 BP 120/79 09/10/20 04:18 Pulse Ox 92 L 09/10/20 04:18 Intake & Output 09/09/20 09/10/20 09/10/20 18:59 06:59 18:59 Intake Total 160 1350 Balance 160 1350 Intake: Intake, IV Titration 700 Amount Piperacillin-Tazobactam 3 100 .375 gm In Sodium Chloride 0.9% 100 ml @ 25 mls/hr IVPB Q8HR [facility]I Rx# :[id number] Sodium Chloride 0.9% 1, 600 000 ml @ 50 mls/hr IV . Q20H [facility]I Rx#:[id number] Oral 160 650 Other: Voiding Method Diaper # Voids 3 4 # Bowel Movements 1 - Exam In general patient is alert and oriented 3 in no apparent distress HEENT head normocephalic and atraumatic, there is constant tremor of the lower mandible Neck is supple no JVD no goiter no lymphadenopathy Chest exam reveals a few scattered crackles no wheezing Cardiac exam reveals irregular heart sounds no gallops no murmurs Abdomen is soft with mild tenderness in the right lower quadrant no organomegaly no palpable masses Extremity exam reveals 2 edema no cyanosis or clubbing Neurological examination reveals no gross focal deficit - Labs CBC & Chem 7: 09/10/20 06:25 09/10/20 06:25 Labs: Abnormal Lab Results - Last 24 Hours (Table) 09/09/20 09/09/20 09/09/20 Range/Units 18:38 18:38 20:01 WBC (3.8-10.6) k/uL RBC (3.80-5.40) m/uL Hgb (11.4-16.0) gm/dL Hct (34.0-46.0) % MCV (80.0-100.0) fL MCH (25.0-35.0) pg RDW (11.5-15.5) % Neutrophils # (1.3-7.7) k/uL Lymphocytes # (1.0-4.8) k/uL Plasma Lactic Acid Sancho 2.7 H* (0.7-2.0) mmol/L C-Reactive Protein 14.1 H (<1.0) mg/dL Procalcitonin 1.03 H (0.02-0.09) ng/mL 09/10/20 Range/Units 06:25 WBC 12.4 H (3.8-10.6) k/uL RBC 3.72 L (3.80-5.40) m/uL Hgb 8.5 L (11.4-16.0) gm/dL Hct 27.4 L (34.0-46.0) % MCV 73.8 L (80.0-100.0) fL MCH 22.9 L (25.0-35.0) pg RDW 16.3 H (11.5-15.5) % Neutrophils # 9.9 H (1.3-7.7) k/uL Lymphocytes # 0.9 L (1.0-4.8) k/uL Plasma Lactic Acid Sancho (0.7-2.0) mmol/L C-Reactive Protein (<1.0) mg/dL Procalcitonin (0.02-0.09) ng/mL Microbiology - Last 24 Hours (Table) 09/08/20 16:35 Gram Stain - Final Abdomen Wound Culture - Final 09/06/20 15:28 Blood Culture - Preliminary Blood No Growth after 72 hours Assessment and Plan Plan: Right colon lesion status post right colectomy Underlying history of hypertension Underlying history of hyperlipidemia Underlying history of gout Underlying history of depression Known atrial fibrillation with elevated heart rate. Patient is on Xarelto for anticoagulation. Leukocytosis and evidence of UTI. Urine culture pending. She maintain on Zosyn Increased confusion with paranoia. Patient was evaluated by psychiatry services no changes to current medication haldol added DVT prophylaxis Xarelto. GI prophylaxis Protonix
--- NOTE | 2020-09-10 15:35 | P.PN ---
Progress Note - Text Progress Note Date: 09/10/20 Patient's sleeping in her bed. She has no real complaints of pain. On exam vital signs are stable. Abdomen soft. Incision is clean dry tach. Status post colectomy. Patient will continue receive supportive care.
--- NOTE | 2020-09-10 16:58 | PN ---
PROGRESS NOTE DATE OF SERVICE: 09/10/2020 REASON FOR FOLLOWUP: Leukocytosis. INTERVAL HISTORY: The patient is currently afebrile. The patient is breathing comfortably. Patient denies having any chest pain, shortness of breath or cough. No abdominal pain. No diarrhea. PHYSICAL EXAMINATION: Blood pressure is 115/78 with a pulse of 95, temperature 96.8, she is 99% on room air. GENERAL DESCRIPTION: An elderly female up in the chair in no distress. RESPIRATORY SYSTEM: Unlabored breathing, clear to auscultation anteriorly. HEART: S1, S2. Regular rate and rhythm. ABDOMEN: Soft, no tenderness. LABS: Hemoglobin 8.2, white count 12, BUN of 18, creatinine 1.3. DIAGNOSTIC IMPRESSION AND PLAN: Patient with leukocytosis, possible abdominal source in this patient clinically responded to Zosyn. White count down to 12,000. Culture has been negative so far. Continue with Zosyn and may transition to a course of oral antibiotic on discharge. Family was at the bedside and questions were answered. MMODL / IJN: [id number] /
[2020-09-10] MEDS: MELATONIN 1 MG TAB PO SCH (20:16)
[2020-09-10] MEDS: SERTRALINE 100 MG TAB PO SCH (20:16)
[2020-09-10] MEDS: MIRTAZAPINE 15 MG TAB PO SCH (20:16)
[2020-09-10] MEDS: FAMOTIDINE 20 MG TAB PO SCH (20:16)
[2020-09-11] MEDS: SODIUM CHLORIDE 0.9% 1,000 ML IV SCH (06:55)
[2020-09-11 07:47] LABS: Anisocytosis Slight; Basophils % (A) 0 %; Eosinophils # (A) 0.3 k/uL (0-0.7); Eosinophils % (A) 3 %; HCT 27.6 % (34.0-46.0); HGB 8.6 gm/dL (11.4-16.0); Hypochromasia Marked; Lymphocytes % (A) 8 %; MCH 22.8 pg (25.0-35.0); MCHC 31.1 g/dL (31.0-37.0); MCV 73.5 fL (80.0-100.0); Mean Platelet Volume 7.9; Microcytosis Moderate; Monocytes # (A) 0.8 k/uL (0-1.0); Monocytes % (A) 6 %; Neutrophils # (A) 10.2 k/uL (1.3-7.7); Neutrophils % (A) 82 %; Platelet Count 380 k/uL (150-450); Poikilocytosis Slight; RBC 3.75 m/uL (3.80-5.40); RDW 16.5 % (11.5-15.5); WBC 12.4 k/uL (3.8-10.6)
[2020-09-11] MEDS: POTASSIUM CHLORIDE ER 20 MEQ TAB.ER PO SCH ×2 (07:51→20:23)
[2020-09-11] MEDS: METOPROLOL SUCCINATE (ER) 50 MG TAB.ER.24H PO SCH (07:51)
[2020-09-11] MEDS: FERROUS SULFATE 325 MG TAB PO SCH (07:51)
[2020-09-11] MEDS: allopurinoL 100 MG TAB PO SCH (07:52)
[2020-09-11] MEDS: MAGNESIUM OXIDE 400 MG TAB PO SCH ×2 (07:52→20:23)
[2020-09-11] MEDS: CHOLECALCIFEROL 25 MCG (1000 IU) TABLET PO SCH (07:52)
[2020-09-11] MEDS: PANTOPRAZOLE 40 MG TABLET PO SCH (07:52)
[2020-09-11] MEDS: DILTIAZEM CD 120 MG CAP.ER.24H PO SCH (07:53)
[2020-09-11] MEDS: PIPERACILLIN-TAZOBACTAM 3.375 GM in SODIUM CHLORIDE 0.9% 100 ML IVPB SCH ×3 (07:54→23:40)
[2020-09-11] MEDS: RIVASTIGMINE 4.6MG/24HR PATCH TRANSDERM SCH (07:54)
[2020-09-11] MEDS: RIVAROXABAN 20 MG TAB PO SCH (07:54)
--- NOTE | 2020-09-11 10:37 | P.PN ---
<Ester Johnson - Last Filed: 09/11/20 10:31> Subjective Progress Note Date: 09/11/20 CHIEF COMPLAINT: Right-sided colon cancer HISTORY OF PRESENT ILLNESS: Patient is status post exploratory laparotomy with right colectomy. Patient lying in bed comfortably. She denies any pain. Denies any nausea or vomiting. She is confused. She is tolerating diet. Patient has had bowel movements. Afebrile . Heart rate 107 WBC 12.4 same as yesterday. hemoglobin 8.6 patient seen by infectious disease regarding cytosis. Maintained on antibiotics Computed tomography scan of the abdomen and pelvis on 09/08/2020 shows mild low- density free fluid in the pelvis. No bowel obstruction. Colonic diverticulosis without diverticulitis. Fluid and pelvis new compared to old exam. There is clearing of masslike density involving the cecum. PHYSICAL EXAM: VITAL SIGNS: Reviewed. GENERAL: Well-developed in no acute distress. HEENT: No sclera icterus. Extraocular movements grossly intact. Moist buccal mucosa. Head is atraumatic, normocephalic. ABDOMEN: Soft. Nondistended. Incision site clean dry and intact NEUROLOGIC: confused ASSESSMENT: 1. Right-sided colon cancer status post exploratory laparotomy with right c olectomy. Postop day #7 2. Leukocytosis continue to monitor. 3. History of atrial fibrillation anticoagulated with Xarelto 4. Leukocytosis continue to monitor PLAN: -Continue low fiber diet -Continue antibiotics per ID -Continue Tylenol as needed for pain -Encourage incentive spirometer use -Increase activity level -Consult PT OT -GI prophylaxis Protonix and DVT prophylaxis Xarelto Physician Senior Safety Support Manager note has been reviewed by physician. Signing provider agrees with the documented findings, assessment, and plan of care. Objective - Vital Signs Vital signs: Vital Signs Temp 97.4 F L 09/11/20 05:00 Pulse 107 H 09/11/20 05:00 Resp 20 09/11/20 05:00 BP 115/71 09/11/20 05:00 Pulse Ox 98 09/11/20 05:00 Intake & Output 09/10/20 09/11/20 09/11/20 18:59 06:59 18:59 Intake Total 240 200 Output Total 1 Balance 240 199 Intake: Oral 240 200 Output: Urine/Stool Mix 1 Other: Voiding Method Diaper # Voids 4 3 # Bowel Movements 1 1 - Labs CBC & Chem 7: 09/11/20 06:27 09/10/20 06:25 Labs: Abnormal Lab Results - Last 24 Hours (Table) 09/10/20 09/11/20 Range/Units 06:25 06:27 WBC 12.4 H (3.8-10.6) k/uL RBC 3.75 L (3.80-5.40) m/uL Hgb 8.6 L (11.4-16.0) gm/dL Hct 27.6 L (34.0-46.0) % MCV 73.5 L (80.0-100.0) fL MCH 22.8 L (25.0-35.0) pg RDW 16.5 H (11.5-15.5) % Neutrophils # 10.2 H (1.3-7.7) k/uL Chloride 111 H (96-109) mmol/L Carbon Dioxide 19.8 L (21.6-31.8) mmol/L Est GFR (CKD-EPI)AfAm 43.3 L (60.0-200.0) Est GFR (CKD-EPI)NonAf 37.4 L (60.0-200.0) Calcium 8.6 L (8.7-10.3) mg/dL Total Bilirubin 0.2 L (0.3-1.2) mg/dL AST 10 L (13-35) U/L ALT <8 L (8-44) U/L Total Protein 4.2 L (6.2-8.2) g/dL Albumin 2.60 L (3.80-4.90) g/dL Microbiology - Last 24 Hours (Table) 09/09/20 18:38 Blood Culture - Preliminary Blood No Growth after 24 hours 09/08/20 16:35 Gram Stain - Final Abdomen Wound Culture - Preliminary 09/06/20 15:28 Blood Culture - Preliminary Blood No Growth after 96 hours <Raji Tracey - Last Filed: 09/11/20 16:13> Subjective As above. Patient clinically improved. She is tolerating her diet. Spoke with the patient's daughter for quite a long time. She is not interested in rehab and think she will do better at home which I tend to agree. Will plan discharge tomorrow morning barring any significant clinical changes. Objective - Vital Signs Vital signs: Vital Signs Temp 97.3 F L 09/11/20 12:15 Pulse 99 09/11/20 12:15 Resp 17 09/11/20 12:15 BP 117/73 09/11/20 12:15 Pulse Ox 99 09/11/20 12:15 Intake & Output 09/10/20 09/11/20 09/11/20 18:59 06:59 18:59 Intake Total 240 200 Output Total 1 Balance 240 199 Weight 85.8 kg Intake: Oral 240 200 Output: Urine/Stool Mix 1 Other: Voiding Method Diaper Diaper # Voids 4 3 # Bowel Movements 1 1 - Labs CBC & Chem 7: 09/11/20 06:27 09/11/20 06:20 Labs: Abnormal Lab Results - Last 24 Hours (Table) 09/11/20 09/11/20 Range/Units 06:20 06:27 WBC 12.4 H (3.8-10.6) k/uL RBC 3.75 L (3.80-5.40) m/uL Hgb 8.6 L (11.4-16.0) gm/dL Hct 27.6 L (34.0-46.0) % MCV 73.5 L (80.0-100.0) fL MCH 22.8 L (25.0-35.0) pg RDW 16.5 H (11.5-15.5) % Neutrophils # 10.2 H (1.3-7.7) k/uL Chloride 110 H (96-109) mmol/L Est GFR (CKD-EPI)AfAm 43.3 L (60.0-200.0) Est GFR (CKD-EPI)NonAf 37.4 L (60.0-200.0) Calcium 8.5 L (8.7-10.3) mg/dL AST 10 L (13-35) U/L Total Protein 4.4 L (6.2-8.2) g/dL Albumin 2.80 L (3.80-4.90) g/dL Microbiology - Last 24 Hours (Table) 09/09/20 18:38 Blood Culture - Preliminary Blood No Growth after 24 hours 09/08/20 16:35 Gram Stain - Final Abdomen Wound Culture - Preliminary 09/06/20 15:28 Blood Culture - Preliminary Blood No Growth after 96 hours
[2020-09-11 11:45] LABS: African American GFR (CKD) 43.3 (60.0-200.0); Albumin 2.8 g/dL (3.80-4.90); Albumin/Globulin Ratio 1.75 (1.60-3.17); Anion Gap 7.2 mmol/L (4.00-12.00); BUN/Creat Ratio 13.08 Ratio (12.00-20.00); Calcium 8.5 mg/dL (8.7-10.3); Carbon Dioxide 22.8 mmol/L (21.6-31.8); Globulin 1.6 g/dL (1.6-3.3); Non-African American GFR(CKD) 37.4 (60.0-200.0); Potassium 4.3 mmol/L (3.5-5.5); Total Bilirubin 0.3 mg/dL (0.3-1.2); Total Protein 4.4 g/dL (6.2-8.2)
[2020-09-11] MEDS: LACTATED RINGERS 1,000 ML IV SCH (13:04)
[2020-09-11 14:29] VITALS: BMI 32.4
--- NOTE | 2020-09-11 14:33 | CDI ---
Documentation Clarification Form Date: 09/11/2020 02:23:28 PM From: Maribel Gonzales CCS, CCDS Admit Date: 09/04/2020 12:34:00 PM Patient Name: Sary Veronica Visit Number: [id number] Discharge Date: ATTENTION: The Clinical Documentation Specialists (CDI) and [facility] Coding Staff appreciate your assistance in clarifying documentation. Please respond to the clarification below the line at the bottom and electronically sign. The CDI & [facility] Coding staff will review the response and follow-up if needed. Please note: Queries are made part of the Legal Health Record. If you have any questions, please contact the author of this message via ITS. Dr. Lincoln Don: UTI is documented in the 09/07 Medical Management Progress Note: "Urine analysis reveals evidence of urinary tract infection, patient was started on IV Rocephin. Plan: Will order UA, UC, blood culture and chest x-ray , patient has evidence of urinary tract infection she was started on IV Rocephin 1 g every 24 hours." Additional clarification regarding the etiology of the UTI is requested. History/Risk Factors per the 09/04 Medical Management Consult History of Present Illness: Hypertension, Hyperlipidemia, Heart Failure, Pneumonia, Anemia, Osteoarthritis, Paroxysmal Atrial Fibrillation, Diverticulosis, Compression Fracture Lumbar, CKD, Previous UTI treated with Levaquin. Clinical Indicators: Patient was admitted 09/04 for an Elective Exploratory Laparotomy with Right Colectomy for Right side Colon Cancer. 09/06 UA: Cloudy, Trace Protein, Small Blood, Small Esterase, RBC 7, WBC 14, Hyaline Cast 26. Urine culture 09/06 (Final): Negative Treatment 09/04 IV Cefazolin, IV Flagyl. 09/07: IV Rocephin, IV Zosyn Please clarify the etiology of the UTI, if known: [ ] UTI related to Andrade catheter [ ] UTI not related to Andrade catheter [ ] Other condition, please specify [ ] Unable to determine (Template Last Revised: July 2020) UTI not related to Andrade catheter MTDD
--- NOTE | 2020-09-11 14:43 | CDI ---
Documentation Clarification Form Date: 09/11/2020 02:34:00 PM From: Maribel PastorGonzalesPRITESH gutierrez, CCDS Admit Date: 09/04/2020 12:34:00 PM Patient Name: Sary Veronica Visit Number: [id number] Discharge Date: ATTENTION: The Clinical Documentation Specialists (CDI) and [facility] Coding Staff appreciate your assistance in clarifying documentation. Please respond to the clarification below the line at the bottom and electronically sign. The CDI & [facility] Coding staff will review the response and follow-up if needed. Please note: Queries are made part of the Legal Health Record. If you have any questions, please contact the author of this message via ITS. Dr. Ambrosio Rinaldi: Per the 09/06 Psychiatric Consult: "She apparently had episodes of paranoia and agitation and had been noted to pull at her Andrade catheter and had it removed overnight." Psychiatric Consult Impression: "Delirium, likely due to medications (opioids and anesthesia). History of depression Additional clarification regarding delirium is requested. History/Risk Factors per the 09/04 Medical Management Consult History of Present Illness: Hypertension, Hyperlipidemia, Heart Failure, Pneumonia, Anemia, Osteoarthritis, Paroxysmal Atrial Fibrillation, Diverticulosis, Compression Fracture Lumbar, CKD, Previous UTI treated with Levaquin. Clinical Indicators: Patient was admitted 09/04 for an Elective Exploratory Laparotomy with Right Colectomy for Right side Colon Cancer. 09/06 VS: T 97.6, P 125, R 16, BP 128/82, PO 100 RA 09/06 LAB: WBC 18.3, Hgb 8.6, Neut 16.5, Na 134, CO2 18.7, GFR 36.4, Glucose 128, Calcium 8.6, Total Bili 0.2, Total Protein 4.3, Albumin 2.800, Globulin 1.5. 09/06 UA: Cloudy, Trace Protein, Small Blood, Small Esterase, RBC 7, WBC 14, Hyaline Cast 26. Urine culture 09/06 (Final): Negative Treatment 09/04 IV Cefazolin, IV Flagyl, IV Dilaudid, IV Zofran, IV KCL, IV Tylenol 09/05: Heparin sq, po Cardizem 09/07: IV Rocephin, IV Zosyn, po Haldol 2 mg q6Hr, IM Haldol 2mg prnrad Melatonin 2 mg. Please clarify the type of encephalopathy, if known: [ X ] Metabolic Encephalopathy [ ] Septic Encephalopathy [ ] Toxic Encephalopathy [ ] Other, please specify [ ] Unable to determine (Template Last Revised: July 2020) MTDD
--- NOTE | 2020-09-11 14:54 | CDI ---
Documentation Clarification Form Date: 09/11/2020 02:45:00 PM From: Maribel PastorGonzalesPRITESH gutierrez, CCDS Admit Date: 09/04/2020 12:34:00 PM Patient Name: Sary Veronica Visit Number: [id number] Discharge Date: ATTENTION: The Clinical Documentation Specialists (CDI) and [facility] Coding Staff appreciate your assistance in clarifying documentation. Please respond to the clarification below the line at the bottom and electronically sign. The CDI & [facility] Coding staff will review the response and follow-up if needed. Please note: Queries are made part of the Legal Health Record. If you have any questions, please contact the author of this message via ITS. Dr. Lincoln Don: The patient presented with the following clinical indicators. Additional clarification regarding the etiology/cause of the clinical indicators is requested. The patient is status post a right colectomy for right side colon cancer on 09/04. Subsequently developed low temperature, elevated heart rate and elevated WBC, Neutrophil and Lactic Acid. Patient has also been diagnosed with a UTI and AILEEN. History/Risk Factors per the 09/04 Medical Management Consult History of Present Illness: Hypertension, Hyperlipidemia, Heart Failure, Pneumonia, Anemia, Osteoarthritis, Paroxysmal Atrial Fibrillation, Diverticulosis, Compression Fracture Lumbar, CKD, Previous UTI treated with Levaquin. Clinical Indicators: Patient was admitted 09/04 for an Elective Exploratory Laparotomy with Right Colectomy for Right side Colon Cancer. 09/06 VS: T 97.6, P 125, R 16, BP 128/82, PO 100 RA 09/05 VS: T 97.3., P 105 - 125, BP 107/64 09/06 LAB: WBC 18.3, Hgb 8.6, Neut 16.5, Na 134, CO2 18.7, GFR 36.4, Glucose 128, Calcium 8.6, Total Bili 0.2, Total Protein 4.3, Albumin 2.800, Globulin 1.5. 09/08 LAB: WBC 26.6, Neut 24.9, Lymph 0.7 09/06 UA: Cloudy, Trace Protein, Small Blood, Small Esterase, RBC 7, WBC 14, Hyaline Cast 26. Urine culture 09/06 (Final): Negative Treatment 09/04 IV Cefazolin, IV Flagyl, IV Dilaudid, IV Zofran, IV KCL, IV Tylenol 09/05: Heparin sq, po Cardizem 09/07: IV Rocephin, IV Zosyn, po Haldol 2 mg q6Hr, IM Haldol 2mg prn, po Melatonin 2 mg. 09/09: IV fluid bolus. In your professional opinion, please clarify if these findings signify one of the following conditions: [ ] Sepsis [ ] Severe Sepsis with organ failure [ ] Other, please specify [ ] Unable to determine (Template Last Reviewed: June 2020) Unable to determine MTDD
--- NOTE | 2020-09-11 18:46 | P.PN ---
Subjective Progress Note Date: 09/11/20 Sary Veronica, is an 85-year-old female who was admitted to [facility] by Dr. Tracey, and underwent Exploratory laparotomy with right colectomy on 09/04/2020, patient was subsequently admitted to medical floor, medical consultation was requested for management while hospitalized. Past medical history is significant for history of hypertension, history of hyperlipidemia, history of anemia, history of osteoarthritis, history of paroxysmal atrial fibrillation, history of diverticulosis, and history of major depression. On review of systems patient is alert and oriented 3 in no distress she was seen postoperatively on the medical floor she is complaining of mild pain in the abdomen otherwise she denies any complaints, there is no fever or chills no headache or dizziness no chest pain no shortness of breath no cough no nausea or vomiting no abdominal pain no diarrhea no blood in the stools no burning with urination no frequency or urgency and no hematuria On 09/05/2020 patient was seen and examined on the medical floor she is alert and oriented in no apparent distress she is complaining of some abdominal discomfort otherwise she denies any complaints throughout last night patient had some episodes of tachycardia , lab reviews is showing evidence of leukocytosis otherwise no abnormality at this time there is no fever or chills no headache or dizziness no chest pain no shortness of breath no cough no nausea or vomiting no abdominal pain no diarrhea no blood in the stools no burning with urination no frequency or urgency and no hematuria On 09/06/2020 patient is more alert and oriented today. Had bouts of confusion and paranoia throughout night. Patient does have known past medical history of dementia. Patient's daughter is at bedside. Patient has improved in mentation. White blood cell is elevated 18.3 and heart rate remains tachycardia with known atrial fibrillation. At this time will order urinary analysis, urine culture, blood culture and chest x-ray to rule out any signs of infection. Patient is extremely hard of hearing but denies any chest pain or shortness breath. Patient denies nausea vomiting or diarrhea. Patient denies any urinary burning or frequency On 09/07/2020 patient is more alert and oriented today. Patient has improved in mentation. White blood cell is elevated 18.3 and heart rate remains tachycardia with known atrial fibrillation. At this time will order urinary analysis, urine culture, blood culture and chest x-ray to rule out any signs of infection. Patient is extremely hard of hearing but denies any chest pain or shortness breath. Patient denies nausea vomiting or diarrhea. Patient denies any urinary burning or frequency. Urine analysis reveals evidence of urinary tract infection patient was started on IV Rocephin On 09/08/2020 patient is alert and oriented to having bouts of confusion and paranoia. Patient is currently resting in chair. Patient was a valid by psychiatry services bob added. Did discuss case with surgical team planning to keep patient until Friday. Patient remains on IV Rocephin for UTI. Urine culture pending. Patient denies chest pain or shortness breath. Patient denies nausea vomiting or diarrhea. Patient denies any urinary burning or frequency On 09/09/2020 patient is alert and more oriented today. White blood cell improving in 19.7. She remains on IV antibiotics Zosyn. Patient denies chest pain or shortness of breath. Patient denies nausea vomiting or diarrhea. Patient denies any urinary burning or frequency. On 09/10/2020 patient was seen and examined on the medical floor she is alert and oriented in no apparent distress, there is no fever or chills no headache or dizziness no chest pain no shortness of breath no cough no nausea or vomiting no abdominal pain no diarrhea no blood in the stools no burning with urination no frequency or urgency and no hematuria white blood count today is down to 12.4 down from 19.7 yesterday 09/11/2020 patient was seen and examined on the medical floor she is alert and oriented in no distress there is no fever or chills no headache or dizziness no chest pain no shortness of breath no cough no nausea or vomiting no abdominal pain no diarrhea and no urinary symptoms white blood count is 12.4 hemoglobin 8.6 platelet count 380 sodium 140 potassium 4.3 BUN 17 creatinine 1.3 she is maintained on IV Zosyn Objective - Vital Signs Vital signs: Vital Signs Temp 97.3 F L 09/11/20 12:15 Pulse 99 09/11/20 12:15 Resp 17 09/11/20 12:15 BP 117/73 09/11/20 12:15 Pulse Ox 99 09/11/20 12:15 Intake & Output 09/10/20 09/11/20 09/11/20 18:59 06:59 18:59 Intake Total 240 200 Output Total 1 Balance 240 199 Intake: Oral 240 200 Output: Urine/Stool Mix 1 Other: Voiding Method Diaper # Voids 4 3 # Bowel Movements 1 1 - Exam In general patient is alert and oriented 3 in no apparent distress HEENT head normocephalic and atraumatic, there is constant tremor of the lower mandible Neck is supple no JVD no goiter no lymphadenopathy Chest exam reveals a few scattered crackles no wheezing Cardiac exam reveals irregular heart sounds no gallops no murmurs Abdomen is soft with mild tenderness in the right lower quadrant no organomegaly no palpable masses Extremity exam reveals 2 edema no cyanosis or clubbing Neurological examination reveals no gross focal deficit - Labs CBC & Chem 7: 09/11/20 06:27 09/11/20 06:20 Labs: Abnormal Lab Results - Last 24 Hours (Table) 09/11/20 09/11/20 Range/Units 06:20 06:27 WBC 12.4 H (3.8-10.6) k/uL RBC 3.75 L (3.80-5.40) m/uL Hgb 8.6 L (11.4-16.0) gm/dL Hct 27.6 L (34.0-46.0) % MCV 73.5 L (80.0-100.0) fL MCH 22.8 L (25.0-35.0) pg RDW 16.5 H (11.5-15.5) % Neutrophils # 10.2 H (1.3-7.7) k/uL Chloride 110 H (96-109) mmol/L Est GFR (CKD-EPI)AfAm 43.3 L (60.0-200.0) Est GFR (CKD-EPI)NonAf 37.4 L (60.0-200.0) Calcium 8.5 L (8.7-10.3) mg/dL AST 10 L (13-35) U/L Total Protein 4.4 L (6.2-8.2) g/dL Albumin 2.80 L (3.80-4.90) g/dL Microbiology - Last 24 Hours (Table) 09/09/20 18:38 Blood Culture - Preliminary Blood No Growth after 24 hours 09/08/20 16:35 Gram Stain - Final Abdomen Wound Culture - Preliminary 09/06/20 15:28 Blood Culture - Preliminary Blood No Growth after 96 hours Assessment and Plan Plan: Right colon lesion status post right colectomy Underlying history of hypertension Underlying history of hyperlipidemia Underlying history of gout Underlying history of depression Known atrial fibrillation with elevated heart rate. Patient is on Xarelto for anticoagulation. Leukocytosis and evidence of UTI. Urine culture pending. She maintain on Zosyn Increased confusion with paranoia. Patient was evaluated by psychiatry services no changes to current medication haldol added DVT prophylaxis Xarelto. GI prophylaxis Protonix
[2020-09-11] MEDS: MIRTAZAPINE 15 MG TAB PO SCH (20:23)
[2020-09-11] MEDS: SERTRALINE 100 MG TAB PO SCH (20:23)
[2020-09-11] MEDS: FAMOTIDINE 20 MG TAB PO SCH (20:23)
[2020-09-11] MEDS: MELATONIN 1 MG TAB PO SCH (20:23)
--- NOTE | 2020-09-11 22:22 | PN ---
PROGRESS NOTE DATE OF SERVICE: 09/11/2020 REASON FOR FOLLOWUP: Leukocytosis. INTERVAL HISTORY: The patient is currently afebrile. The patient is breathing comfortably. Denies having any chest pain, shortness of breath or cough. No abdominal pain or diarrhea. PHYSICAL EXAMINATION: Blood pressure 117/73 with a pulse of 99, temperature 97.3. She is 99% on room air. General description is an elderly female up in the bed in no distress. RESPIRATORY SYSTEM: Unlabored breathing with decreased intensity of breath sounds. No wheeze. HEART: S1, S2. Regular rate and rhythm. ABDOMEN: Soft. No tenderness. EXTREMITIES: No edema of the feet. LABS: Hemoglobin 8.3, white count 12.4, BUN of 17, creatinine 1.3. Culture so far negative. DIAGNOSTIC IMPRESSION AND PLAN: Patient with leukocytosis in this patient who is status post laparotomy and right colectomy for a tumor. Did have extensive workup but no obvious focus of infection. Patient's white count responded to Zosyn; to continue while monitoring clinical course closely. Continue with supportive care. MMODL / IJN: [id number] /
[2020-09-12] MEDS: SODIUM CHLORIDE 0.9% 1,000 ML IV SCH (04:56)
[2020-09-12 07:25] LABS: Anisocytosis Slight; Basophils % (A) 0 %; Eosinophils # (A) 0.4 k/uL (0-0.7); Eosinophils % (A) 3 %; HCT 30.1 % (34.0-46.0); HGB 8.5 gm/dL (11.4-16.0); Hypochromasia Marked; Lymphocytes # (A) 1.5 k/uL (1.0-4.8); Lymphocytes % (A) 10 %; MCH 21.5 pg (25.0-35.0); MCHC 28.4 g/dL (31.0-37.0); MCV 75.5 fL (80.0-100.0); Mean Platelet Volume 6.9; Microcytosis Slight; Monocytes # (A) 0.7 k/uL (0-1.0); Monocytes % (A) 5 %; Neutrophils # (A) 12.1 k/uL (1.3-7.7); Neutrophils % (A) 82 %; Platelet Count 377 k/uL (150-450); Poikilocytosis Slight; RBC 3.98 m/uL (3.80-5.40); RDW 16.3 % (11.5-15.5); WBC 14.8 k/uL (3.8-10.6)
[2020-09-12] MEDS ORDERED: RIVAROXABAN 15 MG TAB PO SCH (09:00)
[2020-09-12] MEDS: CHOLECALCIFEROL 25 MCG (1000 IU) TABLET PO SCH (09:16)
[2020-09-12] MEDS: MAGNESIUM OXIDE 400 MG TAB PO SCH (09:16)
[2020-09-12] MEDS: FERROUS SULFATE 325 MG TAB PO SCH (09:17)
[2020-09-12] MEDS: RIVASTIGMINE 4.6MG/24HR PATCH TRANSDERM SCH (09:17)
[2020-09-12] MEDS: POTASSIUM CHLORIDE ER 20 MEQ TAB.ER PO SCH (09:17)
[2020-09-12] MEDS: allopurinoL 100 MG TAB PO SCH (09:17)
[2020-09-12] MEDS: PANTOPRAZOLE 40 MG TABLET PO SCH (09:17)
[2020-09-12] MEDS: METOPROLOL SUCCINATE (ER) 50 MG TAB.ER.24H PO SCH (09:17)
[2020-09-12] MEDS: DILTIAZEM CD 120 MG CAP.ER.24H PO SCH (09:18)
[2020-09-12] MEDS: PIPERACILLIN-TAZOBACTAM 3.375 GM in SODIUM CHLORIDE 0.9% 100 ML IVPB SCH (09:19)
[2020-09-12 11:00] VITALS: BP 113/76; PULSE 98; RESP 15; TEMP 98.4
--- NOTE | 2020-09-12 12:08 | P.DS ---
<Ester Johnson - Last Filed: 09/12/20 12:03> Providers Expected date of discharge: 09/12/20 Hospital Course: Discharge diagnosis 1. Right-sided colon cancer status post exploratory laparotomy with right colectomy 2. Leukocytosis Hospital course This is a 85-year-old female who had colonoscopy that showed a right sided colon mass in the outpatient setting. And therefore she underwent exploratory laparotomy with right colectomy with Dr. Tracey. Patient tolerated surgery well. Her pain is controlled. She denies any nausea or vomiting. She is tolerating diet. She is having bowel movements and passing gas. She is afebrile. Her white count is elevated at 14.8. Her incision site is clean dry and intact. She was evaluated by infectious disease during this admission. Per infectious disease did have extensive workup and no obvious focus of infection. Patient did respond to Zosyn. Infectious disease is recommending that patient be discharged home on 1 week of Augmentin and Diflucan. Recommend repeating CBC in 1 week. Patient is stable for discharge. Please refer to chart for any further details. Physician Supervisor Hanging And Trimming note has been reviewed by physician. Signing provider agrees with the documented findings, assessment, and plan of care. Patient Condition at Discharge: Stable Plan - Discharge Summary Discharge Rx Participant: No New Discharge Prescriptions: New Fluconazole [Diflucan] 100 mg PO DAILY #7 tab Acetaminophen Tab [Tylenol Tab] 650 mg PO Q4H PRN #30 tablet PRN Reason: Pain Amoxicillin/Potassium Clav [Augmentin 875-125 Tablet] 1 tab PO Q12HR 7 Days #14 tab Continue Torsemide [Demadex] 20 mg PO DAILY Spironolactone [Aldactone] 25 mg PO DAILY Sertraline [Zoloft] 100 mg PO HS Potassium Chloride [Klor-Con 20 Packets] 20 meq PO BID Mirtazapine [Remeron] 30 mg PO HS Metoprolol Succinate [Toprol XL] 50 mg PO DAILY Magnesium Oxide [Mag-Ox] 400 mg PO BID Ferrous Sulfate [Iron] 325 mg PO DAILY Diltiazem Cd [Cardizem CD] 120 mg PO DAILY Allopurinol [Zyloprim] 100 mg PO DAILY Rivastigmine [Rivastigmine 4.6MG/24Hr] 1 patch TRANSDERM DAILY Rivaroxaban [Xarelto] 20 mg PO DAILY Acetaminophen [Tylenol] 500 mg PO DAILY PRN PRN Reason: Pain Pantoprazole Sodium [Protonix] 40 mg PO DAILY Cholecalciferol [Vitamin D3 (25 Mcg = 1000 Iu)] 25 mcg PO DAILY Discharge Medication List Allopurinol [Zyloprim] 100 mg PO DAILY 04/07/20 [History] Diltiazem Cd [Cardizem CD] 120 mg PO DAILY 04/07/20 [History] Ferrous Sulfate [Iron] 325 mg PO DAILY 04/07/20 [History] Magnesium Oxide [Mag-Ox] 400 mg PO BID 04/07/20 [History] Metoprolol Succinate [Toprol XL] 50 mg PO DAILY 04/07/20 [History] Mirtazapine [Remeron] 30 mg PO HS 04/07/20 [History] Potassium Chloride [Klor-Con 20 Packets] 20 meq PO BID 04/07/20 [History] Sertraline [Zoloft] 100 mg PO HS 04/07/20 [History] Spironolactone [Aldactone] 25 mg PO DAILY 04/07/20 [History] Torsemide [Demadex] 20 mg PO DAILY 04/07/20 [History] Rivaroxaban [Xarelto] 20 mg PO DAILY 08/02/20 [History] Rivastigmine [Rivastigmine 4.6MG/24Hr] 1 patch TRANSDERM DAILY 08/02/20 [History] Cholecalciferol [Vitamin D3 (25 Mcg = 1000 Iu)] 25 mcg PO DAILY 08/13/20 [History] Acetaminophen [Tylenol] 500 mg PO DAILY PRN 08/22/20 [History] Pantoprazole Sodium [Protonix] 40 mg PO DAILY 08/22/20 [History] Acetaminophen Tab [Tylenol Tab] 650 mg PO Q4H PRN #30 tablet 09/12/20 [Rx] Amoxicillin/Potassium Clav [Augmentin 875-125 Tablet] 1 tab PO Q12HR 7 Days #14 tab 09/12/20 [Rx] Fluconazole [Diflucan] 100 mg PO DAILY #7 tab 09/12/20 [Rx] Follow up Appointment(s)/Referral(s): Raji Tracey MD [Medical Doctor] - 09/20/20 2:45 pm Lincoln Don MD [Primary Care Provider] - 09/15/20 10:15 am [facility] Visiting Nurse, [NON-STAFF] - 1 Week Patient Instructions/Handouts: Acetaminophen (By mouth), Amoxicillin/Clavulanate Potassium (By mouth), Fluconazole (By mouth) Activity/Diet/Wound Care/Special Instructions: No lifting over 10 pounds You may shower. No soaking or tub baths for 2 weeks Very light activity until you are reevaluated at your follow up appointment with your surgeon Low fiber diet check CBC in 1 week Discharge Disposition: HOME WITH HOME HEALTH SERVICES <Raji Tracey - Last Filed: 09/12/20 15:45> Providers Date of admission: 09/04/20 12:34 Attending physician: Raji Tracey Consults: 09/04/20 16:56 Consult Physician Routine Consulting Provider: Lincoln Don Consult Reason/Comments: Medical management Do you want consulting provider notified?: Yes 09/06/20 11:22 Consult Physician Routine Consulting Provider: Santo Fernandes Consult Reason/Comments: paranoia and aggitation Do you want consulting provider notified?: Yes 09/09/20 10:45 Consult Physician Routine Consulting Provider: Niles Rosales Consult Reason/Comments: Leukocytosis Do you want consulting provider notified?: Yes Primary care physician: Lincoln [facility] Course: As above. Patient doing well today. No pain. No fevers. White blood cell count is increased slightly. Patient and daughter still Maribel anxious for discharge. I do believe that is reasonable. Continue outpatient antibiotics. Check repeat CBC post discharge. Follow-up one week.
[2020-09-12 12:44] LABS: African American GFR (CKD) 47.7 (60.0-200.0); Albumin 2.9 g/dL (3.80-4.90); Albumin/Globulin Ratio 1.71 (1.60-3.17); Anion Gap 9.6 mmol/L (4.00-12.00); BUN/Creat Ratio 13.33 Ratio (12.00-20.00); Calcium 8.4 mg/dL (8.7-10.3); Carbon Dioxide 18.4 mmol/L (21.6-31.8); Globulin 1.7 g/dL (1.6-3.3); Non-African American GFR(CKD) 41.2 (60.0-200.0); Potassium 4.7 mmol/L (3.5-5.5); Total Bilirubin 0.2 mg/dL (0.2-1.2); Total Protein 4.6 g/dL (6.2-8.2)
--- NOTE | 2020-09-12 14:36 | PN ---
PROGRESS NOTE DATE OF SERVICE: 09/12/2020 REASON FOR FOLLOWUP: Leukocytosis. INTERVAL HISTORY: The patient is currently afebrile. The patient is breathing comfortably on room air. The patient mentioned she wants to go home. Denies having any chest pain or cough. No abdominal pain and no diarrhea has been reported. PHYSICAL EXAMINATION: Blood pressure 113/76, pulse of 98, temperature 98.4. She is 100% on room air. General description is an elderly female up in the chair in no distress. RESPIRATORY SYSTEM: Unlabored breathing, decreased intensity of breath sounds. No wheeze. HEART: S1, S2. Regular rate and rhythm. ABDOMEN: Soft, no tenderness. LABS: Hemoglobin 8.5, white count up to 14.8, creatinine 1.3. DIAGNOSTIC IMPRESSION AND PLAN: Patient with leukocytosis in this patient who is status post laparotomy, right colectomy for tumor. She did have extensive workup with a CT of abdomen and pelvis, did not show any evidence of any abscess. The urine has been negative. Culture is negative. Patient initial improvement with Zosyn now slight worsening of the white count. We will add Diflucan or if plan for discharge transition to oral Augmentin and Diflucan for a week and close outpatient followup. Discussed with the nurse practitioner for surgical team working on discharge. MMODL / IJN: [id number] /
== END 2020-09-12 15:09 | disposition home health service (06) | DRG 329 ==
LOC: 2ORMAIN 12:34 → 5NMEDONC 18:05
PROVIDERS: ADMIT Surgery; ATTEND Surgery
PROC: 0DTF0ZZ Resection of Right Large Intestine, Open Approach (ICD-10-PCS; principal; 2020-09-04 14:20)
DX: C18.2 Malignant neoplasm of ascending colon (principal); G93.41 Metabolic encephalopathy; N17.9 Acute kidney failure, unspecified; I13.0 Hypertensive heart and chronic kidney disease with heart failure and stage 1 through stage 4 chronic kidney disease, or unspecified chronic kidney disease; I50.32 Chronic diastolic (congestive) heart failure; N39.0 Urinary tract infection, site not specified; D63.1 Anemia in chronic kidney disease; F03.90 Unspecified dementia, unspecified severity, without behavioral disturbance, psychotic disturbance, mood disturbance, and anxiety; I48.0 Paroxysmal atrial fibrillation; Z20.822 Contact with and (suspected) exposure to COVID-19; K66.0 Peritoneal adhesions (postprocedural) (postinfection); N18.9 Chronic kidney disease, unspecified; E78.5 Hyperlipidemia, unspecified; F32.9 Major depressive disorder, single episode, unspecified; E78.00 Pure hypercholesterolemia, unspecified; E87.6 Hypokalemia; K57.30 Diverticulosis of large intestine without perforation or abscess without bleeding; M10.9 Gout, unspecified; I25.2 Old myocardial infarction; M19.90 Unspecified osteoarthritis, unspecified site; H91.90 Unspecified hearing loss, unspecified ear; E66.9 Obesity, unspecified; Z68.32 Body mass index [BMI] 32.0-32.9, adult; Z79.01 Long term (current) use of anticoagulants; Z79.899 Other long term (current) drug therapy; Z95.0 Presence of cardiac pacemaker; Z87.891 Personal history of nicotine dependence; Z87.01 Personal history of pneumonia (recurrent); Z71.3 Dietary counseling and surveillance; Z82.49 Family history of ischemic heart disease and other diseases of the circulatory system; Z90.49 Acquired absence of other specified parts of digestive tract; Z87.19 Personal history of other diseases of the digestive system; Z87.311 Personal history of (healed) other pathological fracture; Z98.890 Other specified postprocedural states; Z96.653 Presence of artificial knee joint, bilateral; Z87.39 Personal history of other diseases of the musculoskeletal system and connective tissue; Z81.8 Family history of other mental and behavioral disorders
CPT/HCPCS: 71045; 74176; 80048; 80053; 81001; 83605; 84145; 85025; 86140; 86850; 86900; 86901; 87040; 87070; 87086; 87205; 87635; 88309; 94760

== ENCOUNTER → 2021-01-17 | Outpatient (CLI) | payer MEDICARE, OTHER ==
--- NOTE | 2021-01-17 14:27 | XR ---
EXAMINATION TYPE: XR chest 2V DATE OF EXAM: 01/17/2021 COMPARISON: 09/06/2020 HISTORY: Shortness of breath TECHNIQUE: Frontal and lateral views of the chest are obtained. FINDINGS: Scattered senescent parenchymal changes noted. Hyperinflation compatible with COPD. No evidence for infiltrate. No evidence for atelectasis. Heart size is stable. Mediastinal structures are stable and grossly unremarkable. No evidence for hilar prominence. Degenerative changes dorsal spine. IMPRESSION: 1. No evidence for acute pulmonary disease.
[2021-01-17 15:40] LABS: Anisocytosis Slight; Basophils % (A) 1 %; Eosinophils # (A) 0.1 k/uL (0-0.7); Eosinophils % (A) 1 %; HCT 42.8 % (34.0-46.0); HGB 13.9 gm/dL (11.4-16.0); Hypochromasia Slight; Lymphocytes # (A) 1.3 k/uL (1.0-4.8); Lymphocytes % (A) 16 %; MCH 28.3 pg (25.0-35.0); MCHC 32.4 g/dL (31.0-37.0); MCV 87.2 fL (80.0-100.0); Mean Platelet Volume 8.8; Monocytes # (A) 0.4 k/uL (0-1.0); Monocytes % (A) 5 %; Neutrophils # (A) 6.2 k/uL (1.3-7.7); Neutrophils % (A) 77 %; Platelet Count 241 k/uL (150-450); RBC 4.91 m/uL (3.80-5.40); RDW 17.2 % (11.5-15.5); WBC 8.1 k/uL (3.8-10.6)
[2021-01-17 15:54] LABS: Uric Acid 7.9 mg/dL (3.7-7.4)
[2021-01-18 21:45] LABS: % Iron Saturation 10.4 (12.00-45.00)
[2021-01-18 21:54] LABS: Ferritin 39.4 ng/mL (10.0-291.0)
== END | disposition home or self-care (01) ==
LOC: RADXRMAIN 14:04
PROVIDERS: ATTEND Internal Medicine
DX: R06.02 Shortness of breath (principal)
CPT/HCPCS: 71046; 82306; 82607; 82728; 83540; 83550; 84443; 84550; 85025

== ENCOUNTER → 2023-03-27 | Outpatient (CLI) | payer MEDICARE, OTHER ==
--- NOTE | 2023-03-27 13:21 | US ---
EXAMINATION TYPE: US kidneys/renal and bladder DATE OF EXAM: 03/27/2023 COMPARISON: CT 2020 CLINICAL INDICATION: Female, 87 years old with history of N18.32 KIDNEY DISEASE; EXAM MEASUREMENTS: Right Kidney: 8.8 x 4.2 x 3.8 cm Left Kidney: 9.6 x 4.3 x 4.5 cm Right Kidney: No hydronephrosis or masses seen Left Kidney: No hydronephrosis or masses seen Bladder: not fully distended Bilateral Jets seen: no There is no evidence for hydronephrosis at this point in time. No nephrolithiasis is seen. No jorge s are identified. Increased bilateral cortical renal echogenicity with cortical thinning. The urinar y bladder is anechoic and under distended. Bilateral ureteral jets are not seen. IMPRESSION: 1. No hydronephrosis or nephrolithiasis. 2. Findings of chronic medical renal disease bilaterally.
== END | disposition home or self-care (01) ==
LOC: RADUSWWP 12:25
PROVIDERS: ATTEND Internal Medicine
DX: N18.32 Chronic kidney disease, stage 3b (principal)
CPT/HCPCS: 76770

== ENCOUNTER → 2023-06-19 | Outpatient (CLI) | payer MEDICARE, OTHER ==
--- NOTE | 2023-06-19 19:58 | XR ---
EXAMINATION TYPE: XR chest 2V DATE OF EXAM: 06/19/2023 COMPARISON: 01/17/2021 HISTORY: 88-year-old female acute upper respiratory infection, shortness of breath TECHNIQUE: Frontal and lateral views FINDINGS: Left anterior chest wall pacemaker generator with right atrial and right ventricular leads. Heart mil d to moderately enlarged. Atherosclerotic calcifications throughout the aorta with mild aortic ectasi a/tortuosity. Old healed right-sided rib fracture deformities. No consolidation or pleural effusion s een. Vertebroplasty change partially visualized in the lumbar spine. Mild anterior wedging of an uppe r thoracic vertebral body is unchanged. IMPRESSION: Similar [id number] cardiomegaly. Left-sided pacemaker generator. Old healed right-sided rib fra cture deformities. No acute process seen.
== END | disposition home or self-care (01) ==
LOC: RADXRMAIN 14:47
PROVIDERS: ATTEND Internal Medicine
DX: J06.9 Acute upper respiratory infection, unspecified (principal); I51.7 Cardiomegaly
CPT/HCPCS: 71046

== ENCOUNTER → 2023-06-19 | Outpatient (CLI) | payer MEDICARE, OTHER ==
[2023-06-20 02:33] LABS: Basophils # (A) 0.06 X 10*3/uL (0.00-0.10); Basophils % (A) 0.6 %; HCT 49.3 % (37.2-46.3); HGB 14.6 g/dL (12.0-15.0); Lymphocytes # (A) 1.25 X 10*3/uL (0.90-5.00); Lymphocytes % (A) 12.4 %; MCH 28.7 pg (27.0-32.0); MCHC 29.6 g/dL (32.0-37.0); Mean Platelet Volume 11.5 FL (9.5-12.2); Monocytes # (A) 0.53 X 10*3/uL (0.20-1.00); Monocytes % (A) 5.3 %; NRBC Per 100 WBC 0 X 10*3/uL (0.00-0.01); Neutrophils % (A) 80.2 %; Platelet Count 224 X 10*3/uL (140-440); RBC 5.08 X 10*6/uL (4.10-5.20); RDW 16.8 % (11.5-14.5); WBC 10.09 X 10*3/uL (4.50-10.00)
[2023-06-20 03:22] LABS: % Iron Saturation 18.31 (12.00-45.00); Albumin 4.2 g/dL (3.8-4.9); BUN/Creat Ratio 15.67 Ratio (12.00-20.00); Blood Urea Nitrogen 28.2 mg/dL (9.0-27.0); Calcium 10.3 mg/dL (8.7-10.3); Carbon Dioxide 21.1 mmol/L (21.6-31.8); Chloride 103 mmol/L (96-109); Chol/HDL Ratio 3.51 Ratio; Glucose 163 mg/dL (70-110); Iron 80 UG/DL (50-170); LDL Cholesterol,Calculated 89.3 mg/dL (0.0-131.0); Magnesium 1.9 mg/dL (1.5-2.4); Phosphorus 2.9 mg/dL (2.4-5.1); Potassium 4.3 mmol/L (3.5-5.5); Sodium 140 mmol/L (135-145); Total Iron Binding Capacity 437 UG/DL (228-460); Uric Acid 6.5 mg/dL (2.9-7.7)
== END | disposition home or self-care (01) ==
LOC: LABWHC1 15:30
PROVIDERS: ATTEND Internal Medicine
DX: I12.9 Hypertensive chronic kidney disease with stage 1 through stage 4 chronic kidney disease, or unspecified chronic kidney disease (principal); N18.4 Chronic kidney disease, stage 4 (severe); D63.1 Anemia in chronic kidney disease; M10.9 Gout, unspecified; E55.9 Vitamin D deficiency, unspecified; N25.81 Secondary hyperparathyroidism of renal origin; N39.0 Urinary tract infection, site not specified; R73.9 Hyperglycemia, unspecified; R80.9 Proteinuria, unspecified
CPT/HCPCS: 36415; 80048; 80061; 82040; 82306; 82728; 83036; 83540; 83550; 83735; 83970; 84100; 84550; 85025; 86334

== ENCOUNTER → 2023-08-27 | Outpatient (CLI) | payer MEDICARE, OTHER ==
--- NOTE | 2023-08-28 09:18 | XR ---
EXAMINATION TYPE: XR bone survey complete DATE OF EXAM: 08/27/2023 COMPARISON: NONE HISTORY: C18.2 MALIGNANT NEOPLASM OF ASCENDING COLON Z71.3 single view chest: There is deformity of right ribs 3, 4 and possibly 5 likely posttraumatic in natur e however radiographic correlation is advised. Bony calvarium : 2 views of the bony calvarium demonstrate no evidence for lytic or blastic lesion. Spine: Two views of the cervical, thoracic and lumbar spines are submitted. Multilevel degenerative changes seen. Compression fractures of L3 and L4 with vertebroplasty noted of L3. Pathologic componen t not excluded. No lytic or blastic lesions identified with certainty. PELVIS: Single view of the pelvis demonstrates no evidence for lytic or blastic lesion. UPPER EXTREMITIES: Two views of the upper extremities demonstrate no evidence for lytic or blastic le sylvia. LOWER EXTREMITIES: 2 views of the lower extremities and straight no evidence for lytic or blastic les ion. IMPRESSION: 1. There is deformity of right ribs 3, 4 and possibly 5 likely posttraumatic in nature however radio graphic correlation is advised. 2.Multilevel degenerative changes seen. Compression fractures of L3 and L4 with vertebroplasty noted of L3. Pathologic component not excluded.
[2023-08-29 13:51] LABS: Free Kappa Lt Chain Qnt, Urine 12.21 mg/dL (0.00-3.29); Free Lambda Lt Chain Qt, Urine 17.59 mg/dL (0.00-0.38)
== END | disposition home or self-care (01) ==
LOC: RADXRMAIN 14:25
PROVIDERS: ATTEND Internal Medicine Hematology & Oncology
DX: S32.030A Wedge compression fracture of third lumbar vertebra, initial encounter for closed fracture (principal); C18.2 Malignant neoplasm of ascending colon; I48.91 Unspecified atrial fibrillation; I50.9 Heart failure, unspecified; Z71.3 Dietary counseling and surveillance
CPT/HCPCS: 77075; 83883; 84166

== ENCOUNTER → 2023-09-19 | Outpatient (CLI) | payer MEDICARE, OTHER ==
[2023-09-20 03:49] LABS: Basophils # (A) 0.05 X 10*3/uL (0.00-0.10); Basophils % (A) 0.5 %; Eosinophils # (A) 0.11 X 10*3/uL (0.04-0.35); Eosinophils % (A) 1.1 %; HCT 45.1 % (37.2-46.3); HGB 13.6 g/dL (12.0-15.0); Lymphocytes # (A) 1.41 X 10*3/uL (0.90-5.00); Lymphocytes % (A) 13.5 %; MCH 28.7 pg (27.0-32.0); MCHC 30.2 g/dL (32.0-37.0); MCV 95.1 FL (80.0-97.0); Mean Platelet Volume 11.7 FL (9.5-12.2); Monocytes # (A) 0.48 X 10*3/uL (0.20-1.00); Monocytes % (A) 4.6 %; NRBC Per 100 WBC 0 X 10*3/uL (0.00-0.01); Neutrophils # (A) 8.35 X 10*3/uL (1.80-7.70); Neutrophils % (A) 79.8 %; Platelet Count 211 X 10*3/uL (140-440); RBC 4.74 X 10*6/uL (4.10-5.20); RDW 16.5 % (11.5-14.5); WBC 10.45 X 10*3/uL (4.50-10.00)
[2023-09-20 04:19] LABS: % Iron Saturation 16.96 (12.00-45.00); Albumin 4.6 g/dL (3.8-4.9); Blood Urea Nitrogen 30.4 mg/dL (9.0-27.0); Calcium 10.4 mg/dL (8.7-10.3); Carbon Dioxide 20.6 mmol/L (21.6-31.8); Chloride 105 mmol/L (96-109); Glucose 142 mg/dL (70-110); Iron 77 UG/DL (50-170); Potassium 4.3 mmol/L (3.5-5.5); Sodium 143 mmol/L (135-145); Total Iron Binding Capacity 454 UG/DL (228-460)
== END | disposition home or self-care (01) ==
LOC: LABWHC1 14:18
PROVIDERS: ATTEND Nurse Practitioner Family
DX: E55.9 Vitamin D deficiency, unspecified (principal); N25.81 Secondary hyperparathyroidism of renal origin; N39.0 Urinary tract infection, site not specified; D47.2 Monoclonal gammopathy; N18.4 Chronic kidney disease, stage 4 (severe); D63.1 Anemia in chronic kidney disease; R80.9 Proteinuria, unspecified
CPT/HCPCS: 36415; 80048; 82040; 82306; 82728; 83540; 83550; 83883; 83970; 85025

== ENCOUNTER → 2024-04-01 | Outpatient (CLI) | payer MEDICARE, OTHER ==
--- NOTE | 2024-04-04 21:22 | US ---
EXAMINATION TYPE: US thyroid st tissue head/neck DATE OF EXAM: 04/01/2024 COMPARISON: NONE CLINICAL INDICATION: Female, 88 years old with history of R59.0 ENLARGED LYMPH NODES C18.2 COLON CANC ER; palpable areas felt by physician, patient did not have any concerns TECHNIQUE: Soft tissue scan of neck bilaterally FINDINGS: No soft tissue abnormality seen, palpable area on the left supraclavicular was pace maker wires IMPRESSION: 1. No suspicious masses identified. 2. At the level of the palpable abnormality pacemaker wires are identified. [facility], , 04/04/2024 9:19 PM
== END | disposition home or self-care (01) ==
LOC: RADUSWWP 14:53
PROVIDERS: ATTEND Internal Medicine Hematology & Oncology
DX: C18.2 Malignant neoplasm of ascending colon (principal); R59.0 Localized enlarged lymph nodes
CPT/HCPCS: 76536

== ENCOUNTER → 2024-07-26 | Outpatient (CLI) | payer MEDICARE, BC ==
[2024-07-26 21:16] LABS: HCT 43.3 % (37.2-46.3); HGB 13.1 g/dL (12.0-15.0); MCH 27.8 pg (27.0-32.0); MCHC 30.3 g/dL (32.0-37.0); MCV 91.9 FL (80.0-97.0); NRBC Per 100 WBC 0 X 10*3/uL (0.00-0.01); Neutrophils % (A) 82.9 %; Platelet Count 216 X 10*3/uL (140-440); RBC 4.71 X 10*6/uL (4.10-5.20); RDW 15.1 % (11.5-14.5); WBC 9.82 X 10*3/uL (4.50-10.00)
[2024-07-26 21:17] LABS: Basophils # (A) 0.05 X 10*3/uL (0.00-0.10); Basophils % (A) 0.5 %; Eosinophils # (A) 0.07 X 10*3/uL (0.04-0.35); Eosinophils % (A) 0.7 %; Lymphocytes % (A) 11.2 %; Monocytes % (A) 4.1 %; Neutrophils # (A) 8.14 X 10*3/uL (1.80-7.70)
[2024-07-26 21:27] LABS: Appearance,Urine Cloudy (Clear); Bilirubin,Urine Negative (Negative); Blood,Urine Negative (Negative); Color,Urine Dark Yellow (Yellow); Ketones,Urine Trace (Negative); Nitrite,Urine Positive (Negative); PH, Urine 5.5; Specific Gravity,Urine 1.025 (1.001-1.030)
[2024-07-26 21:33] LABS: Bacteria,Urine 4+ (None Seen)
[2024-07-26 21:40] LABS: % Iron Saturation 13.65 (12.00-45.00); Albumin 4.2 g/dL (3.8-4.9); BUN/Creat Ratio 16.56 Ratio (12.00-20.00); Blood Urea Nitrogen 26.5 mg/dL (9.0-27.0); Calcium 10.1 mg/dL (8.7-10.3); Chloride 108 mmol/L (96-109); Glucose 182 mg/dL (70-110); Iron 61 UG/DL (50-170); Magnesium 1.8 mg/dL (1.5-2.4); Phosphorus 2.9 mg/dL (2.4-5.1); Potassium 4.1 mmol/L (3.5-5.5); Sodium 146 mmol/L (135-145); Total Iron Binding Capacity 447 UG/DL (228-460); Uric Acid 6.9 mg/dL (2.9-7.7)
[2024-07-26 21:41] LABS: Ferritin 66.7 ng/mL (10.0-291.0)
== END | disposition home or self-care (01) ==
LOC: LABWHC1 16:00
PROVIDERS: ATTEND Internal Medicine Nephrology
DX: E55.9 Vitamin D deficiency, unspecified (principal); N25.81 Secondary hyperparathyroidism of renal origin; N18.4 Chronic kidney disease, stage 4 (severe); M10.9 Gout, unspecified; N39.0 Urinary tract infection, site not specified; D63.1 Anemia in chronic kidney disease; R80.9 Proteinuria, unspecified
CPT/HCPCS: 36415; 80048; 81001; 82040; 82043; 82306; 82570; 82728; 83540; 83550; 83735; 83970; 84100; 84550; 85025

== ENCOUNTER → 2024-11-22 | Outpatient (CLI) | payer MEDICARE, BC ==
[2024-11-22 20:08] LABS: Basophils # (A) 0.06 X 10*3/uL (0.00-0.10); Basophils % (A) 0.5 %; Eosinophils # (A) 0.07 X 10*3/uL (0.04-0.35); Eosinophils % (A) 0.5 %; HCT 43.1 % (37.2-46.3); HGB 13.5 g/dL (12.0-15.0); Immature Grans, Automated 0.70 %; Lymphocytes # (A) 1.09 X 10*3/uL (0.90-5.00); Lymphocytes % (A) 8.6 %; MCH 28.3 pg (27.0-32.0); MCHC 31.3 g/dL (32.0-37.0); MCV 90.4 FL (80.0-97.0); Monocytes # (A) 0.61 X 10*3/uL (0.20-1.00); Monocytes % (A) 4.8 %; NRBC Per 100 WBC 0 X 10*3/uL (0.00-0.01); Neutrophils # (A) 10.81 X 10*3/uL (1.80-7.70); Neutrophils % (A) 84.9 %; Platelet Count 193 X 10*3/uL (140-440); RBC 4.77 X 10*6/uL (4.10-5.20); RDW 16.7 % (11.5-14.5); WBC 12.73 X 10*3/uL (4.50-10.00)
[2024-11-22 20:25] LABS: Albumin 4.2 g/dL (3.8-4.9); Anion Gap 16.30 mmol/L (4.00-12.00); BUN/Creat Ratio 15.80 Ratio (12.00-20.00); Blood Urea Nitrogen 23.7 mg/dL (9.0-27.0); Calcium 9.9 mg/dL (8.7-10.3); Carbon Dioxide 19.7 mmol/L (21.6-31.8); Chloride 107 mmol/L (96-109); Ferritin 142.0 ng/mL (10.0-291.0); Glucose 177 mg/dL (70-110); Iron 54 UG/DL (50-170); Magnesium 1.8 mg/dL (1.5-2.4); Potassium 4.2 mmol/L (3.5-5.5); Sodium 143 mmol/L (135-145); Total Iron Binding Capacity 410 UG/DL (228-460); Uric Acid 6.5 mg/dL (2.9-7.7)
== END | disposition home or self-care (01) ==
LOC: LABWHC1 15:27
PROVIDERS: ATTEND Nurse Practitioner Family
DX: E55.9 Vitamin D deficiency, unspecified (principal); N25.81 Secondary hyperparathyroidism of renal origin; M10.9 Gout, unspecified; N18.4 Chronic kidney disease, stage 4 (severe); D63.1 Anemia in chronic kidney disease; N39.0 Urinary tract infection, site not specified
CPT/HCPCS: 36415; 80048; 82040; 82043; 82306; 82570; 82728; 83540; 83550; 83735; 83970; 84100; 84550; 85025; 87086